=== PATIENT | female | born 1940 | race Caucasian/White ===

== ENCOUNTER 2017-07-29 12:35 | Inpatient (IN) | payer MEDICARE, OTHER ==
[2017-07-29] MEDS ORDERED: Ondansetron INJ* 2 MG/ML VIAL IV PRN (12:42)
[2017-07-29] MEDS ORDERED: Acetaminophen TAB* 325 MG PO PRN (12:42)
[2017-07-29] MEDS ORDERED: NS 0.9% 1000 ML* 1,000 ML IV SCH (12:45)
[2017-07-29] MEDS ORDERED: Albuterol/Ipratropium NEB.SOL* Albuterol 2.5 MG/Ipratropium 0.5 MG 3 ML INH PRN (12:49)
[2017-07-29] MEDS ORDERED: FILGRASTIM-SNDZ* 480 MCG/0.8 ML SYRINGE SUBCUT SCH (13:00)
[2017-07-29] MEDS ORDERED: Enoxaparin(*) 40 MG/0.4 ML SYR SUBCUT SCH (13:00)
--- NOTE | 2017-07-29 14:02 | RAD ---
INDICATION: Neutropenic, fever. COMPARISON: Comparison is made with a prior CT of the chest from June 13, 2017 and a prior x-ray study of the chest from October 04, 2013. TECHNIQUE: Dual-energy PA and lateral views of the chest were obtained. FINDINGS: The heart is within normal limits in size. The mass noted in the left hilar region and aorticopulmonary window area has decreased in size from the CT study. There is mild diffuse prominence of the interstitial markings which appear unchanged. There is a faint nodular density present at the left lung apex measuring 7 mm in size which appears present on the prior chest x-ray study and grossly unchanged. There is volume loss in a small infiltrate at the left lung base. No pleural effusion is seen. IMPRESSION: 1. SMALL LEFT BASILAR INFILTRATE. 2. INTERVAL DECREASE IN SIZE OF THE LEFT HILAR AND MEDIASTINAL MASS. 3. LEFT UPPER LOBE NODULE, UNCHANGED.
[2017-07-29] MEDS ORDERED: Azithromycin IV(*) 250 MG in D5W 250 ML BAG* 250 ML IVPB SCH (15:00)
[2017-07-29] MEDS: Azithromycin IV(*) 250 MG in NS 0.9% 250 ML* 250 ML IVPB SCH (16:31)
[2017-07-29] MEDS: NS 0.9% 1000 ML* 1,000 ML IV SCH (16:33)
[2017-07-29] MEDS ORDERED: Magnesium Sulf 4 GM/100 ML IV* 4,000 MG/100 ML BAG IVPB ONE (16:37)
[2017-07-29 17:30] LABS: Urine Appearance Clear; Urine Blood 2+ (Negative); Urine Color Yellow; Urine Ketones 1+ (Negative); Urine Protein Negative (Negative); Urine Specific Gravity 1.006 (1.010-1.030); Urine Urobilinogen Negative (Negative)
[2017-07-29] MEDS ORDERED: Calcium Carbonate CHEW TAB* 500 MG (TUMS) PO PRN (19:33)
[2017-07-29] MEDS: Potassium Chloride LIQUID* 20 MEQ PACKET PO SCH (20:37)
--- NOTE | 2017-07-29 21:51 | HP ---
ADDENDUM NOW INCLUDED ON THIS REPORT CC: Dr. Dupree, Primary Care Provider * ADMISSION HISTORY AND PHYSICAL: DATE OF ADMISSION: 07/29/17 PRIMARY ONCOLOGIST: Dr. Dupree. ADMITTING PHYSICIAN: Dr. Dupree. * (DICTATED BY OCTAVIO FERRARA) ADMITTING PROVIDER: OCTAVIO Ferrara CHIEF COMPLAINT: Fever. HISTORY OF PRESENT ILLNESS: This is a 76-year-old female with small cell lung cancer, undergoing concurrent chemo and radiation, who was noted to be febrile at her morning radiation appointment and was subsequently sent for medical exam. Patient states that she has been occasionally chilled since yesterday, accompanied by some increased fatigue over the last 2-3 days, but otherwise she reports that she has not been feeling particularly ill. Her temperature was noted to be approximately 102 degrees Fahrenheit at her radiation appointment. She vomited both in the radiation suite and once she arrived in the medical office. She denies any real associated nausea, but states that the vomiting seems to be the result of gag reflux from coughing thick sputum. She denies any urinary complaints including dysuria or increase in urinary frequency. She denies any associated abdominal pain or diarrhea. She has a chronically dry throat, which she attributes to her radiation therapy but otherwise denies any mouth pain. She has had a poor appetite for months, no changes recently. She does note, however, today that she has been using her albuterol inhaler on a couple of occasions for increased shortness of breath. At baseline, she does not require her rescue inhaler at all and is not on any maintenance inhalers. Patient completed her second cycle of chemotherapy with carboplatin and etoposide on 07/14/17 with her next cycle scheduled to start 08/04/17. Patient did not have any complication from her first cycle of chemo. Denies any recent infection. She is undergoing concurrent twice daily radiation therapy and apart from a dry throat and some moderate heartburn, she denies any other adverse effects. She states this is her last week of scheduled therapy. The patient was noted to be febrile in the office and lethargic. She received 1 liter of normal saline as a bolus and 2 g of cefepime. PAST MEDICAL HISTORY: 1. COPD - symptoms are fairly mild and requires only occasional use of rescue inhaler. 2. Hypertension. 3. Hyperlipidemia. 4. Small cell lung cancer - undergoing concurrent chemo and radiation as described above. 5. Diastolic heart failure. PAST SURGICAL HISTORY: 1. Left total hip replacement 2005 and revision in 2010. 2. Pituitary adenoma excision in 2005. HOME MEDICATIONS: 1. Albuterol 2 puffs inhaled q. 4 hours as needed for shortness of breath. 2. Vitamin D 1000 units p.o. daily. 3. Vitamin B12, 5000 mcg p.o. daily. 4. Glucosamine 1 tablet p.o. daily. 5. Hydrochlorothiazide 25 mg p.o. daily. 6. Ibuprofen 800 mg p.o. twice daily as needed. 7. Simvastatin 20 mg p.o. at bedtime. FAMILY HISTORY: Significant for diabetes, stroke, and heart disease, brother has a history of colon cancer, and sister with a history of lung cancer. SOCIAL HISTORY: Patient is , currently living with her daughter who is her primary caregiver as well as her healthcare proxy. Patient has a 40-pack- year smoking history and continues to smoke 1 pack of cigarettes daily. 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 PHYSICAL EXAMINATION GENERAL: This is an elderly, chronically ill-appearing female, who is accompanied by her daughter and appears to be in no acute distress at the time of examination. VITAL SIGNS: Upon reaching medical floor include a temperature of 99.1 degrees Fahrenheit, pulse 104 beats per minute, respiratory rate 18 per minute, oxygen saturation 94% on room air, and blood pressure 109/45 mmHg. HEENT: Head is normocephalic, atraumatic. Mucous membranes are pink and moist. There are no oral lesions. No evidence of thrush. She does have an upper plate of dentures noted. NECK: There is some submandibular and anterior cervical lymphadenopathy that is nontender to palpation. RESPIRATORY: The patient has a few scattered rhonchi and wheeze in the left lower lobe appreciated. CARDIOVASCULAR: Heart has regular rate and rhythm without murmurs, rubs, or gallops. ABDOMEN: Soft and nontender to palpation. EXTREMITIES: No edema noted. SKIN: Patient has no rash. Examination specifically over the site of radiation shows no erythema or evidence of breakdown of any kind. DIAGNOSTIC STUDIES/LAB DATA: CBC shows a total white blood cell count of 600 with an absolute neutrophil count of 300, hemoglobin of 9.5 g/dL and a platelet count of 30,000. Comprehensive metabolic panel shows a sodium of 129 mmol/L, potassium of 3.4, serum bicarbonate of 28, creatinine of 0.43, glucose of 139 mg/dL. Transaminases are unremarkable. Lactic acid on initial measurement of 2.8, repeat 4 hours later shows improvement to 1.0. Flu swab is negative for influenza A and B. Urinalysis is pending. Imaging: Chest x-ray shows a mild left basilar infiltrate. ASSESSMENT AND PLAN: This is a 76-year-old female with small cell lung cancer, undergoing concurrent chemo and radiation therapy who presented with a fever, now with evidence of neutropenia. Source of infection appears most likely be pulmonary with positive exam findings and a chest x-ray suggestive of small left basilar infiltrate. The patient will be subsequently admitted under observation status to medical floor for neutropenic fever. 1. Neutropenic fever - absolute neutrophil count of 300, noted to be febrile in the outpatient setting. Most likely source of infection is likely pulmonary with left basilar infiltrate appreciated on chest x-ray with associated exam findings. The patient will receive broad-spectrum antibiotic therapy. She received 2 g of cefepime in the clinic, which will be continued in addition to azithromycin for coverage of atypical organisms. We will administer Neupogen daily with monitoring of her absolute neutrophil count. Patient received 1 liter of bolus in the office as normal saline and she will receive 1 additional liter on the medical floor and then start maintenance fluid at a rate of 75 mL per hour. 2. Hyponatremia - suspects that this is likely secondary to hypovolemia. May also represent syndrome of inappropriate antidiuretic hormone secretion - we will plan to repeat chemistries tomorrow after hydration with normal saline. 3. Hypokalemia - likely secondary to gastrointestinal loss. We will replace orally if patient is able to tolerate and pending magnesium level. 4. Chronic obstructive pulmonary disease - no evidence of significant exacerbation accompanying her pneumonia. We will plan to continue treatment with p.r.n. DuoNeb. I do not see an indication to start corticosteroids at this time. 5. Pancytopenia - this is likely chemo-related toxicity - patient will receive Neupogen. We will continue to monitor CBC on a daily basis. No plan for transfusion of red blood cells or platelets at this time. 6. Small cell lung cancer - the patient is currently receiving concurrent chemo and radiation with carboplatin and etoposide, last administered 07/14/17. This is her second cycle with next cycle planned for 08/04/17. She is currently receiving twice daily radiation therapy. We will plan to continue her radiation therapy while inpatient at this time. 7. Healthcare proxy is the patient's daughter. 8. Code status is full. 9. Disposition. The patient is being admitted to observation status at this time with anticipated length of stay to be at least one midnight. OCTAVIO FERRARA ADDENDUM: Please note that blood cultures from periphery and her port were drawn in the office. Urinalysis is pending at the time of this dictation. OCTAVIO FERRARA [id number]/[facility] #: [id number]/[facility] #: [id number] TIA
--- NOTE | 2017-07-29 22:00 | HP ---
HISTORY AND PHYSICAL: ADDENDUM: Please note that blood cultures from periphery and her port were drawn in the office. Urinalysis is pending at the time of this dictation. OCTAVIO FERRARA [id number]/[facility] #: [id number] MTDDeshaun
[2017-07-29] MEDS: Cefepime 2 GM in Dextrose(*) 2 GM/50 ML BAG IV SCH (23:44)
[2017-07-30 06:11] LABS: Hematocrit 21 % (35-47); Hemoglobin 7.4 g/dl (12.0-16.0); Mean Corpuscular HGB Conc 35 g/dl (31-36); Mean Corpuscular Hemoglobin 30 pg (27-31); Mean Corpuscular Volume 88 fL (80-97); Mean Platelet Volume 8 um3 (7.4-10.4); Platelet Count 36 10^3/ul (150-450); Red Blood Count 2.42 10^6/ul (4.0-5.4); Red Cell Distribution Width 14 % (10.5-15); White Blood Count 1.1 10^3/ul (3.5-10.8)
[2017-07-30 06:27] LABS: EGFR Non-African American 188.2 (>60)
[2017-07-30 06:47] LABS: Monocytes % 34 % (0-7)
[2017-07-30] MEDS: NS 0.9% 1000 ML* 1,000 ML IV SCH (07:39)
[2017-07-30] MEDS ORDERED: Potassium Chloride LIQUID* 20 MEQ PACKET ONE (11:04)
[2017-07-30] MEDS: Potassium Chloride LIQUID* 20 MEQ PACKET PO SCH ×2 (11:41→22:21)
[2017-07-30] MEDS: Cefepime 2 GM in Dextrose(*) 2 GM/50 ML BAG IV SCH (12:23)
[2017-07-30] MEDS: Omeprazole CAP* 20 MG PO SCH (17:07)
[2017-07-30] MEDS: Azithromycin IV(*) 250 MG in NS 0.9% 250 ML* 250 ML IVPB SCH (17:07)
[2017-07-30] MEDS ORDERED: Cefepime(*) 2 GM in NS 0.9% 50 ML* 50 ML IVPB SCH (23:00)
[2017-07-31] MEDS: Omeprazole CAP* 20 MG PO SCH (05:16)
[2017-07-31 05:55] LABS: Hematocrit 24 % (35-47); Hemoglobin 8.3 g/dl (12.0-16.0); Mean Corpuscular HGB Conc 35 g/dl (31-36); Mean Corpuscular Hemoglobin 31 pg (27-31); Mean Corpuscular Volume 88 fL (80-97); Mean Platelet Volume 8 um3 (7.4-10.4); Platelet Count 45 10^3/ul (150-450); Red Cell Distribution Width 14 % (10.5-15); White Blood Count 2.3 10^3/ul (3.5-10.8)
[2017-07-31 05:59] LABS: EGFR Non-African American 209.4 (>60)
[2017-07-31 07:14] LABS: Monocytes % 21 % (0-7)
[2017-07-31 08:05] VITALS: BP 126/61
[2017-07-31] MEDS: Potassium Chloride LIQUID* 20 MEQ PACKET PO SCH (08:36)
--- NOTE | 2017-08-01 00:11 | DS ---
CC: Dr. Dupree * DISCHARGE SUMMARY: DATE OF ADMISSION: 07/29/17 DATE OF DISCHARGE: 07/31/17 ATTENDING PHYSICIAN: Dr. Dupree. * (DICTATED BY OCTAVIO FERRARA) DISCHARGING PROVIDER: OCTAVIO Ferrara PRIMARY DISCHARGE DIAGNOSES: 1. Neutropenic fever secondary to pneumonia. 2. Small cell lung cancer, undergoing concurrent chemo and radiation with plan to complete radiation 08/01/17. 3. Hyponatremia - improved. Sodium of 132 mmol/L at the time of discharge. 4. Hypokalemia - improved. Potassium was 3.4 at the time of discharge with instructions to discontinue hydrochlorothiazide. DISCHARGE MEDICATIONS: 1. Albuterol inhaler 2 puffs inhaled q.4 hours as needed for shortness of breath. 2. Vitamin D 1000 units p.o. daily. 3. Vitamin B12 5000 mcg p.o. daily. 4. Glucosamine 1 tablet p.o. daily. 5. Ibuprofen 800 mg p.o. twice daily as needed. 6. Levaquin 500 mg p.o. daily x7 days. 7. Simvastatin 20 mg p.o. at bedtime. Medication changes: 1. Discontinue hydrochlorothiazide. 2. Levaquin x7 days. HOSPITAL IMAGING: Chest x-ray demonstrates a small left basilar infiltrate. HOSPITAL COURSE: This is a 76-year-old female with small cell lung cancer, undergoing concurrent chemoradiation who was referred from the radiation suite with a fever of approximately 102 degrees Fahrenheit. The patient had complaints of shortness of breath and fatigue. The patient received IV hydration in the medical office and labs were drawn which demonstrated a neutropenia with an ANC of 200. The patient was subsequently admitted for neutropenic fever with suspected pneumonia. Chest x-ray confirmed presence of a left basilar infiltrate. The patient was treated with cefepime and azithromycin. Blood cultures and line cultures were drawn, all of which remained negative. Influenza testing was completed which was also negative. The patient received one dose of Neupogen and was hydrated with normal saline. Her ANC at the time of discharge was 1300 and she has been afebrile since the evening of admission. At the time of discharge, the patient denies any shortness of breath, chest pain or cough. Her energy has returned to baseline. Radiation treatments were continued during her hospitalization without complication. DISPOSITION AND FOLLOWUP PLAN: The patient is returning home where she lives independently with some support of her daughter. A referral has been made to [facility]. She plans to complete radiation treatment tomorrow. She will follow up with Dr. Dupree, her primary oncologist early next week in regards to her chemotherapy. OCTAVIO FERRARA [id number]/[facility] #: [id number] TIA
== END 2017-07-31 10:20 | disposition home health service (06) | DRG 808 ==
LOC: MED 12:37 → OBSVTOIN 07-30 13:00
PROVIDERS: ADMIT Internal Medicine Hematology & Oncology; ATTEND Internal Medicine Hematology & Oncology
PROC: DW022ZZ Beam Radiation of Chest using Photons >10 MeV (ICD-10-PCS; principal; 2017-07-30)
PROC: 30233N1 Transfusion of Nonautologous Red Blood Cells into Peripheral Vein, Percutaneous Approach (ICD-10-PCS; 2017-07-30)
DX: D70.9 Neutropenia, unspecified (principal); J18.9 Pneumonia, unspecified organism; I50.32 Chronic diastolic (congestive) heart failure; C34.90 Malignant neoplasm of unspecified part of unspecified bronchus or lung; E87.1 Hypo-osmolality and hyponatremia; R50.81 Fever presenting with conditions classified elsewhere; J44.0 Chronic obstructive pulmonary disease with (acute) lower respiratory infection; D61.818 Other pancytopenia; E87.6 Hypokalemia; F17.210 Nicotine dependence, cigarettes, uncomplicated; J39.2 Other diseases of pharynx; I10 Essential (primary) hypertension; E78.5 Hyperlipidemia, unspecified; Z96.642 Presence of left artificial hip joint; Z83.3 Family history of diabetes mellitus; Z82.49 Family history of ischemic heart disease and other diseases of the circulatory system; Z82.3 Family history of stroke; Z80.0 Family history of malignant neoplasm of digestive organs; Z80.1 Family history of malignant neoplasm of trachea, bronchus and lung
CPT/HCPCS: 36415; 71046; 80048; 80053; 81003; 81015; 83605; 83735; 85025; 85060; 86850; 86870; 86880; 86900; 86901; 86905; 86922; 87040; 87086; 87205; 87502; 96361; 96365; 96367; 99214; 99232; 99239; 99406; A9270-GY; G0378; G0463; J0456; J0692; J1642; J3475; P9040; Q5101 ZA

== ENCOUNTER 2018-11-09 09:37 | Observation (INO) | payer MEDICARE, OTHER ==
[2018-11-09] MEDS ORDERED: NS 0.9% 1000 ML** 1,000 ML IV ONE (09:50)
--- NOTE | 2018-11-09 10:10 | ED ---
Neurological HPI - HPI Summary HPI Summary: This pt is a 78 y/o female [facility]/o some aphasia, described as difficulty findings words, since last night. Daughter reports she speak with the pt every night on the phone. Daughter spoke to the pt yesterday morning and pt was well. Per daughter, pt went to a picnic yesterday at around 16:00 and was there for about 1 hour and then drove herself home. Daughter was told the pt was seen well while at the picnic. Daughter then spoke to the pt again at around 19:00 last night and pt "was not making sense on the phone." Daughter went over and states pt knew what she wanted to say but her words were not coming out right, "like gibberish." Per daughter, this morning pt is still the same with difficulty findings words and couldn't think of what her handicap sticker was called. Pt denies weakness, tingling, numbness. Pt also denies any fever, chills, erythema of eyes, sore throat, chest pain, SOB, cough, abd pain, nausea, vomiting, dysuria, hematuria, myalgia, edema, rash, or dizziness. PMHx: small cell lung CA with radiation and chemo (on remission now), total hip and knee replacement on the left. Pt is followed up by Dr. Preciado and Dr. Dupree. She had an MRI and CT 1 week ago. - History of Current Complaint Chief Complaint: EDNeurologicalDeficit Stated Complaint: POSS STROKE PER PT DAUGHTER Time Seen by Provider: 11/09/18 09:50 Hx Obtained From: Patient, Family/Account Director - Daughter Onset/Duration: Started hours ago, Still Present Timing: Sudden Onset Current Severity: Mild Pain Intensity: 0 - denies pain Pain Scale Used: 0-10 Numeric Character: Other: - difficulty findings words Aggravating: Nothing Alleviating: Nothing Associated Signs and Symptoms: Negative: Weakness, Loss of Consciousness, Numbness, Nausea/Vomiting, Fever, Chest Pain, Shortness of Breath - Additional Pertinent History Primary Care Physician: [id number] - Allergy/Home Medications Allergies/Adverse Reactions: Allergies Allergy/AdvReac Type Severity Reaction Status Date / Time No Known Allergies Allergy Verified 11/09/18 09:43 PMH/Surg Hx/FS Hx/Imm Hx Endocrine/Hematology History: Denies: Hx Diabetes Cardiovascular History: Denies: Hx Hypertension - Hx PF , WITH LOSS BP OK, NOT TAKING ANY MEDICATION , Hx Pacemaker/ICD Respiratory History: Reports: Hx Chronic Obstructive Pulmonary Disease (COPD), Hx Sleep Apnea - OXYGEN 2 L VIA NASAL CANNULA AT NIGHT Denies: Hx Asthma History: Denies: Hx Dialysis, Hx Renal Disease Musculoskeletal History: Reports: Hx Arthritis - HANDS, Hx Osteoporosis Sensory History: Reports: Hx Contacts or Glasses, Hx Hearing Aid Opthamlomology History: Reports: Hx Contacts or Glasses Neurological History: Reports: Other Neuro Impairments/Disorders - CYST ON PITUTARY GLAND Psychiatric History: Denies: Hx Panic Disorder - Cancer History Cancer Type, Location and Year: LUNG CANCER Hx Chemotherapy: No Hx Radiation Therapy: No - Surgical History Surgery Procedure, Year, and Place: PORT-REMOVED ,RT KNEE, LT HIP PIN, GANGLION CYST ON ELBOW. RIGHT KNEE REPLACEMENT 2005. REMOVED CYST PITUITARY GLAND. BILATERAL HIP REPLACMENTS 07/2010 RIGHT-03/2007 LEFT. REPLACE BONE IN LEFT LEG Hx Anesthesia Reactions: No Infectious Disease History: No Infectious Disease History: Denies: Traveled Outside the [place] in Last 30 Days - Family History Known Family History: Positive: Cardiac Disease, Diabetes Family History: Stroke. - Social History Alcohol Use: None Substance Use Type: Reports: None Hx Tobacco Use: Yes Smoking Status (MU): Heavy Every Day Tobacco Smoker Type: Cigarettes Amount Used/How Often: 1 PPD X 40 YEARS, PAST YEAR 1/2PPD OR LESS Have You Smoked in the Last Year: Yes Review of Systems Negative: Fever, Chills Negative: Erythema Negative: Sore Throat Negative: Chest Pain Negative: Shortness Of Breath, Cough Negative: Abdominal Pain, Vomiting, Nausea Negative: dysuria, hematuria Negative: Myalgia, Edema Negative: Rash Neurological: Other - NEGATIVE: dizziness. POSITIVE: difficulty findings words Negative: Weakness, Paresthesia, Numbness All Other Systems Reviewed And Are Negative: Yes Physical Exam - Summary Physical Exam Summary: Constitutional: Well-developed, Well-nourished, Alert. (-) Distressed Skin: Warm, Dry HENT: Normocephalic; Atraumatic Eyes: Conjunctiva normal Neck: Musculoskeletal ROM normal neck. (-) JVD, (-) Stridor, (-) Tracheal deviation Cardio: Rhythm regular, rate normal, Heart sounds normal; Intact distal pulses; The pedal pulses are 2+ and symmetric. Radial pulses are 2+ and symmetric. (-) Murmur Pulmonary/Chest wall: Effort normal. (-) Respiratory distress, (-) Wheezes, (-) Rales Abd: Soft. (-) Tenderness, (-) Distension, (-) Guarding, (-) Rebound Musculoskeletal: (-) Edema Lymph: (-) Cervical adenopathy Neuro: Alert, Oriented x3. (-) Nystagmus, (-) Ataxia by finger to nose testing, (-) Sensory deficit. (+) Drift on the left lower extremity. Poorly states picture description with inappropriate wording. No visual loss. Psych: Mood and affect Normal Triage Information Reviewed: Yes Vital Signs On Initial Exam: Initial Vitals Temp Pulse Resp BP Pulse Ox 98.8 F 80 18 168/87 95 11/09/18 09:38 11/09/18 09:38 11/09/18 09:38 11/09/18 09:38 11/09/18 09:38 Vital Signs Reviewed: Yes - Ebenezer Coma Scale Best Eye Response: 4 - Spontaneous Best Motor Response: 6 - Obeys Commands Best Verbal Response: 5 - Oriented Coma Scale Total: 15 Diagnostics - Vital Signs Vital Signs Temp Pulse Resp BP Pulse Ox 11/09/18 09:38 98.8 F 80 18 168/87 95 - Laboratory Result Diagrams: 11/09/18 10:00 11/09/18 10:00 Lab Statement: Any lab studies that have been ordered have been reviewed, and results considered in the medical decision making process. - CT Brain CT CT Interpretation Completed By: Radiologist Summary of CT Findings: IMPRESSION: 1. No acute intracranial pathology. 2. Chronic small vessel ischemic change. 3. Sinus mucosal inflammatory disease, with an air-fluid level in the frontal sinus. In the correct clinical setting, this may represent acute sinusitis. Dr. Hardy has reviewed this report. Head CTA CT Interpretation Completed By: Radiologist Summary of CT Findings: IMPRESSION: 1. Atherosclerosis. 2. No internal carotid artery stenosis by nascet criteria. 3. No aneurysm, vascular malformation, occlusion, or stenosis of the visualized intracranial circulation. 4. Chronic small vessel ischemic change. 5. Sinus mucosal inflammatory disease, with an air -fluid level in the frontal sinus. In the correct clinical setting, this may represent acute sinusitis. Dr. Hardy has reviewed this report. - EKG 09:54 Cardiac Rate: NL - at 74 bpm EKG Rhythm: Sinus Rhythm Summary of EKG Findings: No STEMI. NIH Scale - NIH Scale Level of Consciousness: Alert/Keenly Responsive Ask Patient the Month and His/Her Age: Both Correct Ask Pt to Open/Close Eyes and Heavy Forger Helper/Release Non-Paretic Hand: Both Correctly Best Gaze (Only Horizontal Eye Movement): Normal Visual Field Testing: No Visual Loss Facial Paresis-Pt to Smile & Close Eyes or Grimace Symmetry: Normal/Symmetrical Motor Function - Right Arm: No Drift-Holds 10 Seconds Motor Function - Left Arm: No Drift-Holds 10 Seconds Motor Function - Right Leg: No Drift-Holds 10 Seconds Motor Function - Left Leg: Drifts LT 10 seconds Limb Ataxia-Must be out of Proportion to Weakness Present: Absent Sensory (Use Pinprick to Test Arms/Legs/Trunk/Face): Normal Best Language (Describe Picture, Name Items): Some Loss Dysarthria (Read Several Words): Slurs Some Words Extinction and Inattention: No Abnormality Total Score: 3 Re-Evaluation - Re-Evaluation First Eval Re-Evaluation Time: 12:34 Comment: Per daughter, pt usually uses a walker to ambulate. Second Eval Re-Evaluation Time: 12:40 Comment: Updated the pt and daughter on results. Course/Dx - Course Assessment/Plan: Pt is a 78 y/o female [facility] c/o some aphasia, described as difficulty findings words, since last night. Daughter reports she speak with the pt every night on the phone. Daughter spoke to the pt yesterday morning and pt was well. Per daughter, pt went to a picnic yesterday at around 16:00 and was there for about 1 hour and then drove herself home. Daughter was told the pt was seen well while at the picnic. Daughter then spoke to the pt again at around 19:00 last night and pt "was not making sense on the phone." Daughter went over and states pt knew what she wanted to say but her words were not coming out right, "like gibberish.". NIH stroke scale is 3. Patient with some aphasia and left lower extremity drift. Brain CT shows 1. No acute intracranial pathology. 2. Chronic small vessel ischemic change. 3. Sinus mucosal inflammatory disease, with an air-fluid level in the frontal sinus. In the correct clinical setting, this may represent acute sinusitis. Head CTA shows 1. Atherosclerosis. 2. No internal carotid artery stenosis by nascet criteria. 3. No aneurysm, vascular malformation, occlusion, or stenosis of the visualized intracranial circulation. 4. Chronic small vessel ischemic change. 5. Sinus mucosal inflammatory disease, with an air-fluid level in the frontal sinus. In the correct clinical setting, this may represent acute sinusitis. Discussed the case with Dr. Zavaleta, hospitalist, who accepted the pt for admission. - Diagnoses Provider Diagnoses: CVA (cerebral vascular accident) - Physician Notifications Discussed Care Of Patient With: Melissa Zavaleta - hospitalist Time Discussed With Above Provider: 12:49 Instructed by Provider To: Admit As Inpatient - Critical Care Time Critical Care Time: 30-74 min - 45 minutes Discharge - Sign-Out/Discharge Documenting (check all that apply): Patient Departure - Admit to [facility] All imaging exams completed and their final reports reviewed: Yes Patient Received Moderate/Deep Sedation with Procedure: No - Discharge Plan Condition: Stable Disposition: ADMITTED TO [facility] - Attestation Statements Document Initiated by Scribe: Yes Documenting Scribe: Melissa Banegas Provider For Whom Scribe is Documenting (Include Credential): Mitchell Hardy MD Scribe Attestation: Melissa James, scribed for Mitchell Hardy MD on 11/09/18 at 1448. Status of Scribe Document: Ready
[2018-11-09 10:18] LABS: ABS Eosinophils 0.1 10^3/ul (0-0.6); ABS Lymphocytes 0.8 10^3/ul (1.0-4.8); ABS Monocytes 0.4 10^3/ul (0-0.8); ABS Neutrophils 2.6 10^3/ul (1.5-7.7); Eosinophil % 2.3 %; Hematocrit 39 % (35-47); Hemoglobin 13.3 g/dL (12.0-16.0); Lymphocyte % 20.1 %; Mean Corpuscular HGB Conc 34 g/dL (31-36); Mean Corpuscular Hemoglobin 31 pg (27-31); Mean Corpuscular Volume 91 fL (80-97); Mean Platelet Volume 8.3 fL (7.4-10.4); Platelet Count 144 10^3/uL (150-450); Red Cell Distribution Width 13 % (10-15); White Blood Count 3.9 10^3/uL (3.5-10.8)
[2018-11-09 10:20] LABS: Activated Partial Thrombo Time 36.7 seconds (26.0-38.0); INR 1.08 (0.82-1.09)
[2018-11-09 10:33] LABS: Albumin 4.4 g/dL (3.2-5.2); Albumin/Globulin Ratio 1.6 (1-3); BUN/Creatinine Ratio 20.5 (8-20); Calcium 10.1 mg/dL (8.6-10.3); EGFR African American 168.2 (>60); Globulin 2.7 g/dL (2-4); HDL Cholesterol 74.5 mg/dL; Potassium 3.7 mmol/L (3.5-5.0); Total Bilirubin 0.6 mg/dL (0.2-1.0); Total Protein 7.1 g/dL (6.4-8.9)
[2018-11-09 10:34] LABS: Troponin I 0.01 ng/mL (<0.04)
[2018-11-09] MEDS ORDERED: Iohexol 350* (CONTRAST) 500 ML MDV IV ONE (10:53)
[2018-11-09] MEDS ORDERED: Ondansetron INJ* 2 MG/ML VIAL IV PRN (13:43)
[2018-11-09] MEDS ORDERED: Acetaminophen TAB* 325 MG PO PRN (13:43)
--- NOTE | 2018-11-09 15:22 | HP ---
CC: Dr. Jas Mancia; Dr. Soto Gomez * ADMISSION HISTORY AND PHYSICAL: DATE OF ADMISSION: 11/09/18 PRIMARY CARE PROVIDER: Dr. Jas Mancia. MY ATTENDING WHILE IN THE HOSPITAL: Dr. Melissa Zavaleta.* (DICTATED BY OCTAVIO CAIN) CONSULTING NEUROLOGIST: Dr. Soto Gomez. CHIEF COMPLAINT: Aphasia x1 day. HISTORY OF PRESENT ILLNESS: Ms. Garg is a 78-year-old female with past medical history significant for small cell lung cancer, currently in remission, status post radiation and chemo; COPD; hypertension; hyperlipidemia, who presents to the emergency department after last night she was in normal state of health, driving herself, when she attempted to call her daughter for their normal evening discussion and was found to have garbled speech and difficulty operating her cellphone. The patient's daughter went to her house and found that she had garbled speech, but normal gait and no other deficits, was feeling well otherwise and improving slowly. The patient spent the night at her daughter's house, woke up this morning and had persistent garbled speech where she looked like she knew what she was trying to say, but was having trouble getting it out. The patient was then brought to the hospital by EMS. The patient has been feeling well recently. The patient has not had any recent treatment for her cancer. The patient had a brain MRI and CT scan of the chest , abdomen and pelvis last week, both of which were stable from previous exams. The patient denied fevers, chills, palpitations, passing out. The patient has no history of AFib. The patient has a history of heart failure with preserved ejection fraction in her documented history, but the family and the patient have no recollection of this ever being a concern. The patient had an episode like while she was having chemotherapy. The patient was previously on aspirin and blood pressure medications, but was taken off these when she was having her chemotherapy. The patient has no leg swelling, no shortness of breath on exertion, no chest pain. No abdominal pain, diarrhea, or dysuria. In the emergency department, the patient had persistent findings of aphasia and left- sided weakness and we were asked to evaluate the patient for admission to the hospital due to concern for CVA. The patient had a negative CTA of the brain and a brain CT without hemorrhage. PAST MEDICAL HISTORY: 1. Small cell lung cancer, in remission, status post chemo and radiation. 2. COPD. 3. Hypertension. 4. Possible history of heart failure with preserved ejection fraction. PAST SURGICAL HISTORY: Pituitary adenoma removal in 2005, Hip Replacement in 2005, knee replacement in 2010, cadaver bone graft to the left hip in 2006, port placement and removal. MEDICATIONS: The patient only takes: 1. Ibuprofen 800 mg daily. 2. Simvastatin 40 mg p.o. daily. 3. Osteo Bi-Flex, unknown dose in the morning. ALLERGIES: No known drug allergies. FAMILY HISTORY: The patient's father of complications of diabetes. The patient's mother of heart failure and also had a stroke when she was 56. The patient has a brother who had colon cancer and a sister who had lung cancer. SOCIAL HISTORY: The patient still smokes less than a pack a day. The patient has a heavy smoking history. The patient denies alcohol or illicit drug use. 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 REVIEW OF SYSTEMS: The patient had lost over 110 pounds in 3 years, but her weight has stabilized where it currently is. Review of systems is otherwise performed in 14 systems and is negative except as above in the HPI. PHYSICAL EXAMINATION GENERAL: The patient is a 78-year-old female, who appears stated age and sitting comfortably in bed, in no acute distress. VITAL SIGNS: At the time of evaluation, temperature 98.8, pulse rate 77, respiratory rate 20, oxygen saturation 98% on room air, blood pressure 165/83. HEENT: Head: Normocephalic, atraumatic. Sclerae anicteric. No conjunctival injection. Nasal mucosa moist. Oral mucosa moist. No pharyngeal erythema, discharge, or exudate. NECK: Supple, nontender. No lymphadenopathy. No carotid bruits auscultated. No JVD. RESPIRATORY: Clear to auscultation bilaterally. No wheezes, rales, or rhonchi. Good air exchange bilaterally. CARDIAC: Regular rate and rhythm. No clicks, murmurs, gallops, or rubs. Pulses are 2+ in the bilateral dorsalis pedis, posterior tibialis, and radial areas. ABDOMEN: Soft, nontender, nondistended. Bowel sounds present and normoactive in all 4 quadrants. No hepatosplenomegaly. No abdominal bruits auscultated. No hepatojugular reflux. GENITOURINARY: No suprapubic or CVA tenderness. NEURO: Cranial nerves II through XII intact. Left-sided weakness in the left upper and lower extremities distally and proximally. Reflexes normal. Normal sensation. The patient has word-finding difficulty and some slurred speech. No other focal deficits. PSYCHIATRIC: Pleasant and cooperative. SKIN: Clean, dry, and intact. No rash. DIAGNOSTIC STUDIES/LAB DATA: White blood cell count 3.9, hemoglobin 13.3, platelet count 144. INR 1.08, APTT 36.7. Sodium 135, potassium 3.7, chloride 100, carbon dioxide 28, anion gap 7, BUN 9, creatinine 0.44, glucose 96, lactic acid 1.4, calcium 10.1. Bilirubin 0.6, AST 16, ALT 6, alkaline phosphatase 76. Troponin I 0.01. Total protein 7.1, albumin 4.4, globulin 2.7. Triglycerides 63, cholesterol 194, LDL cholesterol 107, HDL cholesterol 74.5. Studies: Electrocardiogram shows normal sinus rhythm. No ST segment elevation or depression. Incomplete right bundle branch block, left axis deviation, possible right atrial enlargement, QTc 505, rate of 74. Brain CT read as no acute intracranial pathology, chronic small vessel ischemic change, sinus mucosal inflammatory disease with air-fluid level in the frontal sinus. Head CTA read as atherosclerosis. No internal carotid artery stenosis by NASCET criteria. No aneurysm, vascular malformation, occlusion, or stenosis of the visualized intracranial circulation. Chronic small vessel ischemic change, sinus mucosal inflammatory disease with air-fluid level in the frontal sinus. ASSESSMENT AND PLAN/IMPRESSION: Ms. Garg is a 78-year-old female with past medical history significant for small cell lung cancer, chronic obstructive pulmonary disease, hypertension, hyperlipidemia, who presents to the emergency department with approximately 22 hours of aphasia and was found to have left- sided weakness in the emergency department with concern for a stroke. The patient will be admitted to the hospital for close monitoring, optimization of care and secondary prevention. 1. Cerebrovascular accident. The patient has aphasia and left-sided weakness consistent with cerebrovascular accident. The patient has no evidence of metastases on recent brain MRI with contrast. The patient will have a repeat brain MRI without contrast to look for stroke. The patient will be monitored on telemetry for atrial fibrillation. The patient will have a transthoracic echocardiogram to assess for patent foramen ovale and other structural heart disease predisposing the stroke. The patient has no large vessel occlusion. The patient is out of the tPA window. The patient will be started on aspirin and Plavix. The patient's simvastatin will be increased with an LDL goal less than 70. The patient will have a hemoglobin A1c. The patient will be seen in consultation by Dr. Soto Gomez of Neurology, who has been contacted by the ED. 2. Hypertension. The patient is currently borderline hypertensive. The patient is on no medications for this home as they were previously stopped. The patient will have permissive hypertension at this time. The patient is receiving fluids in the emergency department. The patient should be treated to blood pressure goal starting tomorrow or sooner per Neurology recommendation. 3. Hyperlipidemia. Increase simvastatin as above. 4. Small cell lung cancer. The patient currently appears to be in remission. Follow up outpatient with Oncology. 5. DVT prophylaxis: The patient will be placed on Lovenox subcu. TIME SPENT: Approximately 60 minutes was spent on the admission of this patient , 30 of which was spent [id number] with the patient obtaining history and physical and discussing treatment plan. This plan was discussed with my attending, Dr. Melissa Zavaleta, and she is in agreement. OCTAVIO CAIN [id number]/[facility] #: [id number] TIA
[2018-11-09 15:25] LABS: Urine Appearance Clear; Urine Bacteria Absent (Absent); Urine Bilirubin Negative (Negative); Urine Blood 1+ (Negative); Urine Color Straw; Urine Glucose Negative (Negative); Urine Ketones Negative (Negative); Urine Nitrite Negative (Negative); Urine Protein Negative (Negative); Urine Red Blood Cell Trace(0-2/hpf) (Absent); Urine Specific Gravity 1.027 (1.010-1.030); Urine Urobilinogen Negative (Negative); Urine White Blood Cell Trace(0-5/hpf) (Absent)
[2018-11-09] MEDS: Enoxaparin(*) 40 MG/0.4 ML SYR SUBCUT SCH (16:15)
[2018-11-09] MEDS ORDERED: Aspirin TAB* 325 MG PO ONE (16:27)
[2018-11-09] MEDS ORDERED: Clopidogrel TAB* 300 MG PO ONE (16:28)
--- NOTE | 2018-11-09 17:19 | CONS ---
NEUROLOGY CONSULTATION: DATE OF CONSULT: 11/09/18 REFERRING PROVIDER: OCTAVIO Crowley LOCATION: She is inpatient, room 441. CHIEF COMPLAINT: Episode of difficulty coming up with words. HISTORY OF PRESENT ILLNESS: Chelsy Garg is a 78-year-old right-handed woman who was fine yesterday at a picnic with friends for the day. At around 9 o' clock, she was on the phone and had difficulty coming up with words. She said she knows what she wanted to say, but she could not get the words out. She did not seek medical attention at that time. She thinks by the time she went to bed about midnight it was gone. When she woke up this morning, she no longer had difficulty coming up with words. Her daughter, however, convinced her to come to the emergency room. She was evaluated and has been admitted. She has not had any problems with word finding today. Other than the word finding difficulties last evening, she did not notice any change in vision, weakness, numbness, headaches, or imbalance. There is no prior history of transient ischemic attack or stroke. PAST MEDICAL HISTORY: Notable for small cell lung cancer, treated with radiation and chemotherapy. She is currently considered to be free of disease. She has a history of COPD, hypertension, hyperlipidemia, diastolic heart dysfunction. She had a total hip replacement in 2005 with revision in 2010. She had a pituitary adenoma excised in 2005. MEDICATIONS: Medications at home consist of: 1. Simvastatin 40 mg p.o. daily. 2. Ibuprofen 800 mg p.o. daily. 3. Multivitamin. 4. She does not take aspirin on a regular basis. ALLERGIES: She does not have any drug allergies. FAMILY HISTORY: Notable for mother who had a stroke at age 56. One sister had lung cancer and one brother had colon cancer. SOCIAL HISTORY: The patient still smokes a pack of cigarettes per day. She is and lives by herself. She does not drink alcohol. REVIEW OF SYSTEMS: Negative for falls, headaches, or change in vision. She lost nearly 100 pounds in the last 3 years. Her weight has been stable in the last few months. No history of seizures or head trauma. No recent fevers or chills. PHYSICAL EXAMINATION: She is thin, but well hydrated. Temperature is 98.8, blood pressure has been running about 160 to 180 systolic/80 to 90 diastolic, heart rate is in the 70s and regular, respiratory rate is 18, and oxygen saturation is 96% on room air. Lungs are clear bilaterally. Heart tones are distant, but I do not hear any murmurs. Carotid pulses are present. There are no cervical bruits. Oral mucosa is moist and head is atraumatic. Neurological Exam: Pupils react equally from 4 down to 2.5 mm. Funduscopic exam is normal. Eye movements are normal. Visual yoon are full to confrontation. Facial musculature is symmetric. Facial sensation to light touch is symmetric. Palate and tongue appear normal, tongue protrudes in the midline and palate rises symmetrically. She is hard of hearing. Motor exam reveals normal tone and strength in the limbs proximally and distally. There is no drift of any of the limbs. Sensory exam is intact to light touch in all limbs. Pin discrimination is intact in all limbs as well. There is no rest tremor. [id number] maneuver and [id number] maneuvers are normal bilaterally. Reflexes are intact and symmetric other than trace ankle reflexes. Plantar responses are flexor bilaterally. I did not ambulate her. She is alert and oriented with intact memory. Language is fluent. She has adequate attention, concentration, and fund of knowledge. DIAGNOSTIC STUDIES/LAB DATA: Laboratory data includes a normal CBC other than borderline low platelet count at 144,000. Chemistries are unremarkable. Cholesterol today is 194 and LDL 107. Lactic acid 1.4. Urinalysis is notable for 1+ blood and otherwise unremarkable. MRI of the brain was obtained and reviewed. Official interpretation is some scattered nonspecific white matter changes, but no evidence of restricted diffusion or hemorrhages. I reviewed the images and I questioned whether there might be a tiny subacute area of restricted diffusion in the right frontoparietal junction. IMPRESSION: Impression is that of a dominant hemisphere transient ischemic attack. Currently, her exam is unremarkable and her MRI imaging does not show any convincing evidence of acute or subacute infarction. She has been appropriate, admitted to telemetry. An echocardiogram is pending. Recommend loading with Plavix 300 mg and aspirin 324 mg. She should be continued on maintenance dual antiplatelet therapy of aspirin 81 mg and Plavix 75 mg starting tomorrow. Her echocardiogram is pending. Her statin is being continued. Her dose will likely need to be increased with an LDL of 107. I will continue to follow her along with you. [id number]/[facility] #: [id number] TIA
[2018-11-09] MEDS ORDERED: Atorvastatin* 20 MG TAB PO SCH (21:00)
[2018-11-09] MEDS ORDERED: Ibuprofen TAB* 800 MG PO SCH (21:00)
[2018-11-10 06:32] LABS: ABS Eosinophils 0.1 10^3/ul (0-0.6); ABS Lymphocytes 0.8 10^3/ul (1.0-4.8); ABS Monocytes 0.4 10^3/ul (0-0.8); ABS Neutrophils 1.3 10^3/ul (1.5-7.7); Eosinophil % 5.1 %; Hematocrit 35 % (35-47); Hemoglobin 11.9 g/dL (12.0-16.0); Lymphocyte % 31.6 %; Mean Corpuscular HGB Conc 34 g/dL (31-36); Mean Corpuscular Hemoglobin 31 pg (27-31); Mean Corpuscular Volume 91 fL (80-97); Mean Platelet Volume 8.6 fL (7.4-10.4); Nucleated Red Blood Cells % 0.2; Platelet Count 128 10^3/uL (150-450); Red Blood Count 3.81 10^6 /uL (3.70-4.87); Red Cell Distribution Width 13 % (10-15); White Blood Count 2.6 10^3/uL (3.5-10.8)
[2018-11-10 06:43] LABS: BUN/Creatinine Ratio 22.7 (8-20); Calcium 9.5 mg/dL (8.6-10.3); EGFR African American 168.2 (>60); Potassium 3.6 mmol/L (3.5-5.0)
[2018-11-10] MEDS ORDERED: Clopidogrel TAB* 75 MG PO SCH (09:00)
[2018-11-10] MEDS ORDERED: Aspirin EC TAB* 81 MG TAB.EC PO SCH (09:00)
--- NOTE | 2018-11-10 11:42 | ECHO ---
*[facility]* [place] [address] Fax #: [phone] Transthoracic Echocardiogram Patient: Britany, Height: 66 in / Chelsy H 167.6 cm : 1940 Weight: 144.7 lb / Study Date: 11/10/2018 65.8 kg Age: 78 BP: 171 / 77 Gender: F BMI/BSA: 23.4 kg/m^2 HR: 70 bpm / 1.76 m^2 *Chief Librarian Branch Or Department: * Meredith Crespo RDCS RN *Referring Physician: * Bossman Triplett *Reading Physician: * Francisco Javier Foote MD Indications: TIA. History: Chronic obstructive pulmonary disease. Small cell lung cancer with chemotherapy and radiation therapy. Risk factors: Current tobacco use. Hypertension. Dyslipidemia. Conclusions Summary: 1. Left ventricle: The cavity size is normal. Wall thickness is mildly to moderately increased. Systolic function is normal. The estimated ejection fraction is 60-65%. Wall motion is normal; there are no regional wall motion abnormalities. 2. Right ventricle: Systolic function is normal. The estimated peak pressure is 34 mm Hg. 3. Atrial septum: No defect or patent foramen ovale is identified. 4. Mitral valve: There is trace to mild regurgitation. 5. Aortic valve: There is mild regurgitation. 6. Tricuspid valve: There is trace to mild regurgitation. 7. Compared to study of 07/07/18, there is little change. Study data: Transthoracic echocardiogram. Procedure: Transthoracic echocardiography was performed. Image quality was fair. The study was technically limited due to COPD and Smoking history. Intravenous agitated saline was administered. A bubble study was performed on Images 27 and 28. Complete 2D, spectral Doppler, and color flow Doppler. Patient status: Observation. Patient room number: 441-01. Rhythm: Normal sinus rhythm. Findings Left ventricle: The cavity size is normal. Wall thickness is mildly to moderately increased. Systolic function is normal. The estimated ejection fraction is 60-65%. Wall motion is normal; there are no regional wall motion abnormalities. Left ventricular diastolic function parameters are normal. Right ventricle: The cavity size is normal. Systolic function is normal. The estimated peak pressure is 34 mm Hg. Left atrium: The atrium is normal in size. Right atrium: The atrium is normal in size. Atrial septum: No defect or patent foramen ovale is identified. Bubble study was negative on Images 27 and 28. Mitral valve: The annulus is mildly calcified. The leaflets are moderately thickened. There is no evidence of stenosis. There is trace to mild regurgitation. Aortic valve: The valve is trileaflet. The leaflets are mildly thickened. There is no evidence of stenosis. There is mild regurgitation. Tricuspid valve: The valve is structurally normal. There is no evidence of stenosis. There is trace to mild regurgitation. Pulmonic valve: Not well visualized. Aorta: Aortic root: The aortic root is not dilated. Ascending aorta: The ascending aorta is not visualized. Aortic arch: The aortic arch is not dilated. Pericardium: There is no pericardial effusion. Pulmonary arteries: Not well visualized. Systolic pressure is within the normal range, estimated to be 34 mm Hg. Systemic veins: Inferior vena cava: The vessel is normal in size. The respirophasic diameter changes are in the normal range (>= 50%). Measurements Left ventricle Value Ref Aortic valve Value Ref WILEY, LAX 4.1 cm 3.8 - 5.2 Peak v, S 1.8 m/sec ----- ESD, LAX 2.7 cm 2.2 - 3.5 VTI, S 40.9 cm ----- FS, LAX 34 % 27 - 45 Mean grad, S 7.6 mm Hg ----- PW, ED, LAX (H) 1.1 cm 0.6 - 0.9 Peak grad, S 13.0 mm Hg ----- IVS/PW, ED 1.2 --------- LVOT/AV, VTI ratio 0.73 ----- E', lat lori, TDI (L) 6.0 cm/sec >=10.0 AR peak v 3.15 m/sec -- --- E/e', lat lori, TDI 14 --------- AR decel time 1866 ms ----- E', med lori, TDI (L) 6.0 cm/sec >=7.0 AR PHT 541 ms -- --- E/e', med lori, TDI 14 --------- AR peak grad 40 mm Hg ----- E', avg, TDI 6.0 cm/sec --------- E/e', avg, TDI 14 <=14 Mitral valve Value Re f Peak E 0.85 m/sec ----- LVOT Value Ref Peak A 1.18 m/sec ----- Peak irma, S 1.4 m/sec --------- Decel time 339 ms ----- VTI, S 29.8 cm --------- Peak grad, D 2.9 mm Hg ----- Peak grad, S 8 mm Hg --------- Peak E/A ratio 0.72 ----- Mean grad, S 4 mm Hg --------- Pulmonic valve Value Ref Ventricular septum Value Ref Peak v, S 1.08 m/sec ----- IVS, ED (H) 1.3 cm 0.6 - 0.9 Peak grad, S 4.7 mm Hg ----- Right ventricle Value Ref Tricuspid valve Value Ref WILEY major ax, A4C (L) 3.5 cm 5.9 - 8.3 TR peak v 2.8 m/sec <=2.8 Peak RV-RA grad, S 31 mm Hg ----- Left atrium Value Ref LA ID 3.3 cm --------- Aortic root Value Ref ML dim, A4C 4.6 cm --------- Root diam 2.7 cm <4.0 SI dim, A4C 5.1 cm --------- Vol, ES, 2-p 59 ml --------- Aortic arch Value Ref Vol/bsa, ES, 2-p 33 ml/m^2 16 - 34 Arch diam 2.2 cm ----- Right atrium Value Ref Decending aorta Value Ref ML dim, ES, A4C 4.1 cm 2.6 - 4.4 Anshul peak irma 0.56 m/sec ----- SI dim, ES, A4C 4.7 cm 3.4 - 5.3 Estimated RAP 3 mm Hg --------- Inferior vena cava Value Ref Diam 1.7 cm ----- Legend: (L) and (H) jaden values outside specified reference range. Prepared and electronically signed by Francisco Javier Foote MD 11/10/2018 11:42
[2018-11-10] MEDS: Enoxaparin(*) 40 MG/0.4 ML SYR SUBCUT SCH (14:02)
[2018-11-10] MEDS ORDERED: Atorvastatin* 40 MG TAB PO SCH (21:00)
--- NOTE | 2018-11-10 22:26 | DS ---
DISCHARGE SUMMARY: ADDENDUM: DISCHARGE MEDICATIONS: New home medications: 1. Aspirin 81 mg p.o. daily. 2. Plavix 75 mg p.o. daily x30 days. Changed home medications: Simvastatin 20 mg p.o. daily changed to 40 mg p.o. daily. Continued home medications: 1. Ibuprofen 800 mg p.o. daily p.r.n. 2. Osteo Bi-Flex 1 cap p.o. daily. ASHLEY TORRES, ISATU [id number]/[facility] #: [id number] [facility] HOSPITALDeshaun
--- NOTE | 2018-11-10 23:32 | DS ---
CC: Dr. Jas Mancia; Dr. Gomez* DISCHARGE SUMMARY: DATE OF ADMISSION: 11/09/18 DATE OF DISCHARGE: 11/10/18 PRIMARY CARE PROVIDER: Dr. Jas Mancia. ATTENDING WHILE IN THE HOSPITAL: Dr. Cruz* (dictated by Ashley Torres NP). CONSULTING NEUROLOGIST: Dr. Gomez. PRIMARY DIAGNOSES: 1. Aphasia. 2. Transient ischemic attack. SECONDARY DIAGNOSES: 1. Small cell lung cancer. 2. Chronic obstructive pulmonary disease. 3. Hypertension. 4. Possible history of heart failure with preserved ejection fraction. HISTORY OF PRESENT ILLNESS/HOSPITAL COURSE: Mrs. Garg is a 78-year-old female with a past medical history significant for small cell lung cancer, COPD , hypertension, hyperlipidemia, who presented to the emergency department on after approximately 24 hours of garbled speech and difficulty finding words. Please see history and physical dictated by OCTAVIO Crowley, for complete summary of events leading up to the hospitalization, but in short, while in the emergency department the patient was noted to have aphasia and slight left-sided weakness. The patient had imaging including head CTA, which read as atherosclerosis, no internal carotid artery stenosis, no aneurysm, vascular malformation, occlusion or stenosis visualized, chronic small vessel ischemic change, sinus mucosal inflammatory disease with an air-fluid level in the frontal sinus. The patient also had a brain CT, which revealed no acute intracranial pathology, chronic small vessel ischemic change, sinus mucosal inflammatory disease. Given the patient's symptoms, she was admitted to the telemetry floor and Neurology was consulted. The patient was outside the tPA window; therefore, she was loaded with aspirin and Plavix. The patient underwent an MRI, which revealed no restricted diffusion to suggest acute infarct, stable nonspecific white matter changes, sinus mucosal inflammatory disease, bilateral mastoid effusions. In addition, the patient had a transthoracic echo, which revealed that her left ventricular cavity size is normal with [id number] increased wall thickness, EF 60% to 65%, normal systolic function, no atrial septal defect or patent foramen ovale, trace amount of regurgitation of mitral valve, mild regurgitation of aortic valve, trace amount of regurgitation of the tricuspid valve. Finally, when compared to study of 07/07/18, there was little change. The patient's symptoms have resolved. While on tele, the patient has remained in sinus rhythm. It should also be noted that the patient has had lab work which revealed mildly elevated LDL of 107. This case was discussed with Dr. Rivera and the patient is safe for discharge to home. The patient is stable for discharge home. Vital Signs: Temp 98.1, HR 68, RR 16, O2 saturation is 96% on room air, BP 146/ 58. REVIEW OF SYSTEMS: A 14-point review of systems was completed and all were negative. PHYSICAL EXAMINATION: General: Ms. Garg is a 78-year-old female who is sitting on the bed. Appears to be in no acute distress. Appears stated age. HEENT: EOMs are intact. PERRLA. Oral mucosa is moist without lesion. Posterior oropharynx is clear. Neck: Supple. No lymphadenopathy. Cardiac: S1, S2 present. No murmurs, rubs, or gallops. Regular rate and rhythm. Respiratory: Lungs are clear to auscultation. No wheezes, rhonchi or rubs. Good aeration. Abdomen: Soft and nontender. Bowel sounds are normoactive. Extremities: No edema. No clubbing or cyanosis. Pedal pulses are 2+ bilaterally. Musculoskeletal: No pain or deformities. Skin: Grossly intact. Neuro: Cranial nerves II through XII are grossly intact. Sensation is intact. Coordination is intact. No drift. Strength is 5/5 in the upper and lower extremities bilaterally. DIAGNOSTIC STUDIES/LABORATORY DATA: WBC 2.6, hemoglobin 11.9, hematocrit 35, platelets 128. Sodium 137, potassium 3.6, chloride 104, carbon dioxide 29, BUN 10, creatinine 0.44. Hemoglobin A1c is 5.6. Magnesium 2.0. Triglycerides 63, total cholesterol 194, LDL 107, HDL 74.5. EKG: Normal sinus rhythm. Imaging: As above, in the HPI. DISCHARGE PLAN/FOLLOWUP: 1. Aphasia: The patient's aphasia has resolved since her admission. Daughter , at bedside, reports her speech is now at baseline. 2. Transient ischemic attack: It is suspected that the patient's aphasia and left- sided weakness noted on her admission to the emergency department were secondary to a possible TIA. The patient should continue aspirin and Plavix x30 days. The patient should stop Plavix after 30 days, but continue aspirin 81 mg. In addition, given the patient's LDL of 107, which is above goal of 70, I had increased her simvastatin from 20 mg daily to 40 mg daily. Finally, I have encouraged the patient to follow up with Dr. Gomez in 3 weeks. 3. Lung cancer: The patient is currently in remission. She is status post chemo and radiation. The patient is to follow up with her primary care. 4. Chronic obstructive pulmonary disease: The patient has a history of COPD, but is not currently on medications. The patient is to follow up with her primary care as needed. 5. Hypertension: Once again, the patient carries a history of hypertension, but she is not currently on medications. The patient was noted to be mildly hypertensive on admission with systolic in the 170s to 180s. Today, she is 146/ 58. I am reluctant to start the patient on blood pressure medications given the acute setting. I would encourage her primary care to complete an ambulatory BP study and address BP as necessary. 6. Followup: The patient has been encouraged to followup with her primary care in 1 to 3 days. The patient has been encouraged to call Dr. Gomez's office first thing tomorrow and make a followup in 3 weeks. The patient and daughter both stated understanding. 7. Education: The patient and daughter were educated on signs and symptoms of new or worsening condition and when to return to the emergency department. Both stated their understanding. TIME SPENT: Approximately 40 minutes were spent on this discharge, greater than half that time was spent [id number] with the patient and daughter, discussing discharge plans and instructions. This is a summarized report of a complex medical history and hospital stay. For further details, please see entire medical record. This plan was also discussed with my attending, Dr. Cruz, who is in agreement with my plan of care. ASHLEY TORRES NP ADDENDUM TO DISCHARGE SUMMARY: DISCHARGE MEDICATIONS: New home medications: 1. Aspirin 81 mg p.o. daily. 2. Plavix 75 mg p.o. daily x30 days. Changed home medications: Simvastatin 20 mg p.o. daily changed to 40 mg p.o. daily. Continued home medications: 1. Ibuprofen 800 mg p.o. daily p.r.n. 2. Osteo Bi-Flex 1 cap p.o. daily. ASHLEY TORRES, ISATU [id number]/[facility] #: [id number]/CPS #: [id number] TIA
[2018-11-10 23:48] VITALS: BP 126/75
== END 2018-11-10 19:40 | disposition home or self-care (01) ==
LOC: ED 09:37 → MEDTELE 13:43
PROVIDERS: ADMIT Internal Medicine; ATTEND Internal Medicine
DX: R47.01 Aphasia (principal); I63.9 Cerebral infarction, unspecified; F17.210 Nicotine dependence, cigarettes, uncomplicated; C34.90 Malignant neoplasm of unspecified part of unspecified bronchus or lung; J44.9 Chronic obstructive pulmonary disease, unspecified; I10 Essential (primary) hypertension; Z96.642 Presence of left artificial hip joint; Z96.652 Presence of left artificial knee joint; Z92.21 Personal history of antineoplastic chemotherapy; Z79.82 Long term (current) use of aspirin; Z79.899 Other long term (current) drug therapy
CPT/HCPCS: 36415; 70450; 70496; 70498; 70551; 80048; 80053; 80061; 81003; 81015; 83036; 83605; 83735; 84484; 85025; 85610; 85730; 87086; 93005; 93306; 96372; 99285; A9270-GY; G0378; G8978-GP-CI; G8979-GP-CI; G8980-GP-CI; J1650; Q9967

== ENCOUNTER 2019-06-14 15:05 | Inpatient (IN) | payer MEDICARE, OTHER ==
[2019-06-14] MEDS ORDERED: NS 0.9% 1000 ML** 1,000 ML IV ONE ×2 (15:27→19:27)
[2019-06-14] MEDS ORDERED: Ondansetron INJ* 2 MG/ML VIAL IV ONE (15:27)
--- NOTE | 2019-06-14 15:28 | ED ---
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 Patient was found unresponsive sitting at the table with aphasia. Patients last known well was yesterday at 2230. Patient has a new cough. She does not have any history of DVT or PE. Patient is on oxygen at home at night. Patient is a smoker. The patient rates the pain 0/10 in severity. Symptoms aggravated by nothing. Symptoms alleviated by nothing. Patient is vomiting in the ED room. - History Of Current Complaint Stated Complaint: AMS,POSS CVA PER EMS Time Seen by Provider: 06/14/19 15:09 Hx Obtained From: Family/Tube Cutter Operator - Daughter Onset/Duration: Unknown, Still Present Timing: Constant Severity Initially: Mild Severity Currently: Mild Character: Confusion Aggravating Factor(s): Nothing Alleviating Factor(s): Nothing Associated Signs And Symptoms: Positive: Nausea, Vomiting - Allergies/Home Medications Allergies/Adverse Reactions: Allergies Allergy/AdvReac Type Severity Reaction Status Date / Time No Known Allergies Allergy Verified 11/09/18 09:43 Home Medications: Home Medications Aspirin EC TAB* [Ecotrin EC Low Dose 81 MG*] 81 mg PO DAILY 06/14/19 [History Confirmed 06/14/19] Glucosamine/D3/Boswellia Clara [Osteo Bi-Flex/5-Loxin Adv] 1 tab PO DAILY [History Confirmed 06/14/19] PMH/Surg Hx/FS Hx/Imm Hx Endocrine/Hematology History: Denies: Hx Diabetes Cardiovascular History: Reports: Hx Hypertension - Hx PF , WITH LOSS BP OK, NOT TAKING ANY MEDICATION Denies: Hx Pacemaker/ICD Respiratory History: Reports: Hx Chronic Obstructive Pulmonary Disease (COPD), Hx Sleep Apnea - OXYGEN 2 L VIA NASAL CANNULA AT NIGHT Denies: Hx Asthma History: Denies: Hx Dialysis, Hx Renal Disease Musculoskeletal History: Reports: Hx Arthritis - HANDS, Hx Osteoporosis Sensory History: Reports: Hx Contacts or Glasses Comment Only: Hx Hearing Aid - [employer] Opthamlomology History: Reports: Hx Contacts or Glasses Neurological History: Reports: Other Neuro Impairments/Disorders - CYST ON PITUTARY GLAND Psychiatric History: Denies: Hx Panic Disorder - Cancer History Cancer Type, Location and Year: LUNG CANCER Hx Chemotherapy: No Hx Radiation Therapy: No - Surgical History Surgery Procedure, Year, and Place: PORT-REMOVED ,RT KNEE, LT HIP PIN, GANGLION CYST ON ELBOW. RIGHT KNEE REPLACEMENT 2005. REMOVED CYST PITUITARY GLAND. BILATERAL HIP REPLACMENTS 07/2010 RIGHT-03/2007 LEFT. REPLACE BONE IN LEFT LEG Hx Anesthesia Reactions: No Infectious Disease History: No Infectious Disease History: Denies: Traveled Outside the [place] in Last 30 Days - Family History Known Family History: Positive: Cardiac Disease, Diabetes Family History: Stroke. - Social History Alcohol Use: None Hx Substance Use: No Substance Use Type: Reports: None Hx Tobacco Use: Yes Smoking Status (MU): Heavy Every Day Tobacco Smoker Type: Cigarettes Amount Used/How Often: 1 PPD X 40 YEARS, PAST YEAR 1/2PPD OR LESS Have You Smoked in the Last Year: Yes Review of Systems Positive: Cough Positive: Vomiting, Nausea Neurological: Other - AMS All Other Systems Reviewed And Are Negative: Yes Physical Exam - Summary Physical Exam Summary: Constitutional: Patient appears unwell, nausea and vomiting at bedside. Skin: Warm, Dry HENT: Normocephalic; Atraumatic Eyes: Conjunctiva normal Neck: Musculoskeletal ROM normal neck. (-) JVD, (-) Stridor, (-) Tracheal deviation Cardio: Tachycardic. Pulmonary/Chest wall: Decreased breath sounds bilaterally. Abd: Soft, (-) tenderness, (-) Distension, (-) Guarding, (-) Rebound Musculoskeletal: (-) Edema Lymph: (-) Cervical adenopathy Neuro: Moving all extremities, no focal neural deficits. GCS: 15 Psych: Mood and affect Normal Triage Information Reviewed: Yes Vital Signs On Initial Exam: Initial Vitals Temp Pulse Resp BP Pulse Ox 101.9 F 60 18 188/122 91 06/14/19 15:14 06/14/19 15:14 06/14/19 15:14 06/14/19 15:14 06/14/19 15:14 Vital Signs Reviewed: Yes Procedures - Sedation Patient Received Moderate/Deep Sedation with Procedure: No Diagnostics - Vital Signs Vital Signs Temp Pulse Resp BP Pulse Ox 06/14/19 15:14 101.9 F 60 18 188/122 91 - Laboratory Result Diagrams: 06/14/19 15:52 06/14/19 15:51 Lab Statement: Any lab studies that have been ordered have been reviewed, and results considered in the medical decision making process. - Radiology CXR Radiology Interpretation Completed By: Radiologist Summary of Radiographic Findings: PERSISTENT INTERSTITIAL OPACIFICATION. THE DIFFERENTIAL INCLUDES PULMONARY INTERSTITIAL EDEMA VERSUS CHRONIC INTERSTITIAL LUNG DISEASE. Dr. eNss has reviewed this radiology report. - CT Brain CT Interpretation Completed By: Radiologist Summary of CT Findings: #. No acute intracranial process evident. #. Stigmata of chronic small vessel ischemic disease. #. Mucosal thickening at the ethmoid and LEFT frontal sinuses without definitive findings of acute sinusitis. Dr. Ness has reviewed this radiology report. - EKG 1512 Cardiac Rate: NL - 95 BPM EKG Rhythm: Sinus Rhythm Summary of EKG Findings: An EKG at 1512 revealed NSR at 95 BPM, no STEMI. Dr. Ness has reviewed and interpreted this EKG. 1758 Cardiac Rate: NL - 97 BPM EKG Rhythm: Sinus Rhythm Summary of EKG Findings: An EKG at 1758 revealed NSR at 97 BPM, similar to prior EKG, no STEMI. Dr. Ness has reviewed this radiology report. Re-Evaluation - Re-Evaluation First Eval Re-Evaluation Time: 16:33 Comment: Discussed results with patient's family. 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 In the ED course patient received fluids, Zofran, and Apresoline. An EKG at 1512 revealed NSR at 95 BPM, no STEMI. CXR: PERSISTENT INTERSTITIAL OPACIFICATION. THE DIFFERENTIAL INCLUDES PULMONARY INTERSTITIAL EDEMA VERSUS CHRONIC INTERSTITIAL LUNG DISEASE. Influenza A and B both negative. At 1620, discussed patient case with Dr. Bo, radiologist, who re-read the patients CXR and confirmed the presence of a skin fold as opposed to a PTX. UA revealed 1 + protein 1+ ketones, 2+ blood, 1.009 specific gravity, 3+ RBC. I gave patient Rocephin. Blood work revealed: sodium 134, chloride 97, creatinine 0.48, glucose 108, BNP 113, troponin 0.03, lymphocytes 0.5, lactic acid 2.1. ABG revealed pH 7.50, pO2 66, base excess 4.9. Brain CT: #. No acute intracranial process evident. #. Stigmata of chronic small vessel ischemic disease. #. Mucosal thickening at the ethmoid and LEFT frontal sinuses without definitive findings of acute sinusitis. An EKG at 1758 revealed NSR at 97 BPM, similar to prior EKG, no STEMI. Discussed patient case with Dr. Patterson hospitalist, who accepted the patient for admission to [facility]. - Diagnoses Provider Diagnoses: SIRS (systemic inflammatory response syndrome), Elevated troponin - Provider Notifications Discussed Care Of Patient With: Trevin Bo Time Discussed With Above Provider: 16:20 Instructed by Provider To: Other - Discussed patient case with Dr. Bo, radiologist, who re-read the patients CXR and confirmed the presence of a skin fold. At 1658 discussed patient case with Dr. Jackson, hospitalist, who requested the brain CT read, blood gas, and antibiotics before she can admit the patient. At 1843, discussed patient case with Dr. Patterson, hospitalist, who accepted the patient for admission to [facility]. Discharge ED - Sign-Out/Discharge Documenting (check all that apply): Patient Departure - Admit - Discharge Plan Condition: Fair Disposition: ADMITTED TO [facility] Referrals: Jas Mancia MD [Primary Care Provider] - - Attestation Statements Document Initiated by Scribe: Yes Documenting Scribe: Baltazar Hartley Provider For Whom Scribe is Documenting (Include Credential): Agus Ness DO [employer] Attestation: Baltazar James scribed for Agus Ness DO on 06/14/19 at 1845. Status of Scribe Document: Ready
[2019-06-14 16:00] LABS: ABS Lymphocytes 0.5 10^3/ul (1.0-4.8); ABS Monocytes 0.3 10^3/ul (0-0.8); ABS Neutrophils 6.1 10^3/ul (1.5-7.7); Eosinophil % 0.2 %; Hematocrit 40 % (35-47); Hemoglobin 13.8 g/dL (12.0-16.0); Lymphocyte % 7.7 %; Mean Corpuscular HGB Conc 34 g/dL (31-36); Mean Corpuscular Hemoglobin 30 pg (27-31); Mean Corpuscular Volume 89 fL (80-97); Mean Platelet Volume 8.1 fL (7.4-10.4); Platelet Count 164 10^3/uL (150-450); Red Blood Count 4.52 10^6 /uL (3.70-4.87); Red Cell Distribution Width 13 % (10-15)
[2019-06-14 16:03] LABS: Influenza A Molecular NEGATIVE (Negative); Influenza B Molecular NEGATIVE (Negative)
[2019-06-14 16:21] LABS: Troponin I 0.03 ng/mL (<0.03)
[2019-06-14 16:21] LABS: Urine Appearance Cloudy; Urine Bilirubin Negative (Negative); Urine Blood 2+ (Negative); Urine Color Straw; Urine Glucose Negative (Negative); Urine Ketones 1+ (Negative); Urine Nitrite Negative (Negative); Urine Protein 1+(30 mg/dL) (Negative); Urine Specific Gravity 1.009 (1.010-1.030); Urine Urobilinogen Negative (Negative)
[2019-06-14] MEDS ORDERED: hydrALAZINE IV* 20 MG/ML VIAL IV SLOW PU ONE ×2 (16:22→18:30)
[2019-06-14 16:23] LABS: Urine Bacteria Absent (Absent); Urine Red Blood Cell 3+(>10/hpf) (Absent); Urine White Blood Cell Trace(0-5/hpf) (Absent)
[2019-06-14] MEDS ORDERED: cefTRIAXone(*) 1 GM in NS 0.9% 50 ML* 50 ML IVPB ONE (16:59)
[2019-06-14 17:14] LABS: ALT 7 U/L (7-52); AST 17 U/L (13-39); Albumin 4.5 g/dL (3.2-5.2); Albumin/Globulin Ratio 1.6 (1-3); Alkaline Phosphatase 95 U/L (34-104); Anion Gap 11 mmol/L (2-11); BUN/Creatinine Ratio 16.7 (8-20); Blood Urea Nitrogen 8 mg/dL (6-24); CO2 Carbon Dioxide 26 mmol/L (22-32); Calcium 9.9 mg/dL (8.6-10.3); Chloride 97 mmol/L (101-111); EGFR African American 152.1 (>60); EGFR Non-African American 125.7 (>60); Globulin 2.8 g/dL (2-4); Glucose 108 mg/dL (70-100); Sodium 134 mmol/L (135-145); Total Protein 7.3 g/dL (6.4-8.9)
[2019-06-14 19:02] LABS: Troponin I 0.05 ng/mL (<0.03)
[2019-06-14] MEDS ORDERED: Acetaminophen TAB* 325 MG PO PRN (19:37)
[2019-06-14] MEDS ORDERED: Ondansetron INJ* 2 MG/ML VIAL IV PRN (19:37)
[2019-06-14] MEDS ORDERED: NS 0.9% 1000 ML** 1,000 ML IV SCH (19:45)
[2019-06-14] MEDS: Atorvastatin* 20 MG TAB PO SCH (21:53)
[2019-06-14] MEDS: Enoxaparin(*) 40 MG/0.4 ML SYR SUBCUT SCH (21:54)
[2019-06-14 22:09] LABS: Troponin I 0.06 ng/mL (<0.03)
--- NOTE | 2019-06-14 23:34 | HP ---
ADMISSION HISTORY AND PHYSICAL DATE OF ADMISSION: 06/14/19 PROVIDER: Shayy Ramos NP ATTENDING PHYSICIAN: Dr. Lotus Hugo.* (DICTATED BY SHAYY RAMOS NP) PRIMARY CARE PHYSICIAN: Dr. Mancia. Also seen by Dr. Dupree and Dr. Preciado. CHIEF COMPLAINT: Unresponsiveness. HISTORY OF PRESENT ILLNESS: This is a 78-year-old female with a past medical history significant for a small cell lung cancer, COPD and previous TIA, who presented to emergency room on 06/14/19 for altered mental status. She was last known well at 2230 last night, when she spoke to her daughter over the phone. Yesterday, she had gone to a casino with her family members and had been ambulating well, completely alert and oriented with no evidence of feeling unwell. She was found seated in kitchen with no pants in her chair at just before 2 p.m. this afternoon. Initially, she was very hard to wake up and when she did, she would not speak, would not make eye contact, and was not clear that she was understanding what was happening around her and at that point that is when EMS was called. In the emergency room, she vomited and was noted to have coughed, but still remain altered and not responding to any direct commands with only purposeful and unpurposeful movements in upper and lower extremities. Hospitalist were asked to evaluate the patient for admission. Labs were drawn. Imaging was done. PAST MEDICAL HISTORY: Small cell lung cancer, status post radiation and chemo with last round performed 2 years, COPD, hypertension, hyperlipidemia, TIA, pituitary adenoma, acromegaly, sleep apnea with 2 L of oxygen worn at night. PAST SURGICAL HISTORY: Biopsy of pituitary adenoma, port placement and removal , bilateral hip replacement, right total knee replacement, and left hip cadaver bone graft. MEDICATIONS: 1. Aspirin 81 mg p.o. daily. 2. Simvastatin 40 mg p.o. at bedtime. 3. Ibuprofen 800 mg p.o. b.i.d. 4. Osteo Bi-Flex 1 tab p.o. daily. ALLERGIES: None. FAMILY HISTORY: Father decreased due to diabetes complications. Mother secondary to heart failure and stroke. Brother had colon cancer. SOCIAL HISTORY: Current half-pack a day smoker. Family denies any alcohol or recreational substance use. 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 REVIEW OF SYSTEMS: Unable to be performed secondary to altered mentation, however, according to family members she is very hard of hearing. Normally had bilateral hearing aids in. When she initially had her cancer 2 years ago, she lost 100 pounds over 6 pounds though has been able to maintain her weight since then. She has good appetite and 3 times a week she gets home cooked meals, otherwise, she normally eats a lot of TV dinners and higher sugar foods. PHYSICAL EXAMINATION GENERAL: This is a well-developed, older woman seen resting in the stretcher, appears to be mildly distressed, moves around in the stretcher as if she is experiencing discomfort. VITAL SIGNS: 99.5 temp, 97 pulse, 17 respirations, 94% oxygen on room air, 153/ 69 blood pressure. HEENT: Conjunctivae pink and moist. PERRLA. EOMs intact. Mucous membranes are tachy, slightly dry. Has prominent facial features including prominent jaw and nose. NECK: Supple. RESPIRATORY: Lung sounds clear throughout bilaterally on room air. No accessory muscle use noted. CARDIAC: S1, S2 present. Heart rate regular. No murmurs, gallops or rubs appreciated though tachycardic. No bilateral lower extremity edema. ABDOMEN: Soft, nontender, nondistended with positive bowel sounds x4. MUSCULOSKELETAL: No clubbing or cyanosis of the digits, full range of motion. SKIN: No open areas or rashes appreciated. NEURO: Unable to perform an adequate neuro check due to lack of cooperation, though sensation appeared to be intact to light touch. PSYCH: Unable to assess orientation. DIAGNOSTIC STUDIES/LAB DATA: Pertinent lab data: Sodium 134, chloride 97, creatinine 0.48, glucose 108, lactic acid 2.1. Troponin 0.05. Ammonia 56. B- natriuretic peptide 113. Blood gas, pH 7.5, PO2 66, PCO2 36, base excess of 4.9. Urine shows 1+ protein, 1+ ketones, 2+ blood, 3+ rbcs and negative for influenza A or B. Diagnostic studies: Brain CT shows no acute intracranial process evident, stigmata of chronic small vessel ischemic disease, mucosal thickening at the ethmoid and left frontal sinuses without definitive findings of acute sinusitis. Chest x-ray: The impression showed persistent interstitial opacification. Differential includes pulmonary interstitial edema versus chronic interstitial lung disease. ASSESSMENT AND PLAN: 1. Sepsis due to unknown source with associated encephalopathy. Her urine was negative for leukocyte esterase or nitrite. We are awaiting the results of blood cultures. Her chest x-ray was not definitive for any pneumonia or any other infection. We feel that this is sepsis as evidenced by tachycardia, tachypnea and her white blood cell count though within traditional normal limits , is elevated for her. She typically runs between 2.6 and the 3 range though is currently at 7. It is possible that this could be a viral etiology. It is doubtful that this is meningitis as she is unable to move her neck without pain and does not seem to have any severe headache or photosensitivity, however, if she gets worse , it is possible that she might need a lumbar puncture though I do not feel that it is necessary at this time. It is also possible that her encephalopathy could be secondary to seizures that has been previously undiagnosed. 2. Elevated troponin. We will continue to trend until they go down. They initially was 0.03, increased to 0.05. Because the patient is unable to provide any review of systems, it is not clear that she is experiencing any chest pain. It is possible that this is secondary to the sepsis process. However, it is also possible that she could be having a pulmonary embolism. We will add on a D-dimer to her labs. Should these numbers continue trend up, then I recommend that Cardiology be involved. 3. Hematuria. There has been evidence of microscopic blood within the past 3 UAs that has been done here at [facility]. We will recheck in the a.m. There was no obvious signs of urinary tract infection that could be causing the blood. It is a possibility that could be caused by hypertension or kidney stone, so should the UA still show persistent urine tomorrow, I would recommend getting a renal ultrasound. 4. Hyperlipidemia. She is to continue her simvastatin. 5. Sleep apnea. She does not use a CPAP at home rather she uses 2 L of oxygen at night which we are to continue here. 6. DVT prophylaxis. Initiate Lovenox. 7. Code statu: Full code. DISPOSITION: To admit OBV to [address] [place] [address]. CONDITION: Guarded. TIME SPENT: Time spent on the patient is about 60 minutes with half of that spent [id number]. SHAYY RAMOS, BIBLIOGRAPHIC SERVICES SPECIALIST [id number]/[facility] #: [id number] TIA
[2019-06-15 07:00] LABS: ABS Lymphocytes 0.8 10^3/ul (1.0-4.8); ABS Monocytes 0.7 10^3/ul (0-0.8); ABS Neutrophils 4.4 10^3/ul (1.5-7.7); Eosinophil % 0.1 %; Hematocrit 37 % (35-47); Hemoglobin 12.6 g/dL (12.0-16.0); Lymphocyte % 13.8 %; Mean Corpuscular HGB Conc 35 g/dL (31-36); Mean Corpuscular Hemoglobin 31 pg (27-31); Mean Corpuscular Volume 89 fL (80-97); Mean Platelet Volume 8.4 fL (7.4-10.4); Platelet Count 150 10^3/uL (150-450); Red Blood Count 4.13 10^6 /uL (3.70-4.87); Red Cell Distribution Width 13 % (10-15); White Blood Count 5.9 10^3/uL (3.5-10.8)
[2019-06-15 07:11] LABS: BUN/Creatinine Ratio 20.8 (8-20); Calcium 9.1 mg/dL (8.6-10.3); EGFR African American 152.1 (>60); EGFR Non-African American 125.7 (>60)
[2019-06-15] MEDS: cefTRIAXone(*) 2 GM in NS 0.9% 100 ML* 100 ML IVPB SCH (08:15)
[2019-06-15] MEDS: Aspirin EC TAB* 81 MG TAB.EC PO SCH (08:15)
[2019-06-15 08:51] LABS: Troponin I 0.06 ng/mL (<0.03)
--- NOTE | 2019-06-15 09:23 | PN ---
Subjective Date of Service: 06/15/19 Interval History: Seen with daughter at bedside Pt practically averbal, dose voice some words like "wow" when cold hands touch her belly otherwise cannot meaningfully contribute to conversation Objective Active Medications: Acetaminophen (Tylenol Tab*) 650 mg PO Q4H PRN PRN Reason: MILD PAIN or TEMP > 100.4 Aspirin (Aspirin Ec Tab*) 81 mg PO DAILY [facility] Last Admin: 06/15/19 08:15 Dose: 81 mg Atorvastatin Calcium (Lipitor*) 20 mg PO BEDTIME [facility] Last Admin: 06/14/19 21:53 Dose: 20 mg Enoxaparin Sodium (Lovenox(*)) 40 mg SUBCUT Q24H [facility] Last Admin: 06/14/19 21:54 Dose: 40 mg Ceftriaxone Sodium 2 gm/ (Sodium Chloride) 100 mls @ 200 mls/hr IVPB Q24H [facility] Last Admin: 06/15/19 08:15 Dose: 200 mls/hr Ondansetron HCl (Zofran Inj*) 4 mg IV Q4H PRN PRN Reason: NAUSEA/VOMITING Vital Signs - 8 hr 06/15/19 06/15/19 06/15/19 03:06 07:21 08:00 Temperature 99.7 F 101.1 F Pulse Rate 89 85 Respiratory 18 17 18 Rate Blood Pressure 168/77 174/72 (mmHg) O2 Sat by Pulse 96 95 Oximetry Oxygen Devices in Use Now: None Appearance: sitting up in bed, smiling, NAD Eyes: No Scleral Icterus, PERRLA Ears/Nose/Mouth/Throat: Clear Oropharnyx, Mucous Membranes Moist Neck: NL Appearance and Movements; NL JVP, Trachea Midline, - - thyloid enlarged , no nodules Respiratory: Symmetrical Chest Expansion and Respiratory Effort, - - rales left mid lung posteriorly Cardiovascular: RRR, - - 2/6 JEANA LLSB Abdominal: NL Sounds; No Tenderness; No Distention, No Hepatosplenomegaly Lymphatic: No Cervical Adenopathy Extremities: No Edema, - - no tenderness over any joints including hips Skin: No Rash or Ulcers Neurological: - - averbal, moves all extremities and keeps all extremities elevated, does not follow commands but does mimic movements such as keeping mouth open and sticking tounge out, EOMI, PERRL, face symmetric Result Diagrams: 06/15/19 06:29 06/15/19 06:29 Assess/Plan/Problems-Billing Assessment: 78 F h/o TIA (10/2018), small cell lung ca s/p chemo/rt (completed 2 yrs [employer]), acromegaly, pituitary adenoma, COPD on 2L O2 at night, ELÍAS not on CPAP p/w fevers and altered mental status - Patient Problems (1) Encephalopathy Comment: Acute metabolic encaphalopathy suspected in setting of sepsis Sepsis with high fevers and unknown source - patient's daughter has been sick but unclear if there was contact Pt with rales in left lung - no e/o PNA on CXR - will check CT chest now Enlarged thyroid on exam - add on TSH Urine with hematuria but no other e/o infx- Follow urine and blood cultures If change in clinical status will consider LP however currently improving since yesterday (except for fevers) looks well, comfortable and I doubt acute bacterial meningitis Doubt CVA in setting of fevers but low threshold for MRI brain (2) Hypertension Comment: on no medications at home hypertensive in setting of acutre illness and fevers Will not add new PO medication unless >180 or remains elevated after fever abates (3) COPD (chronic obstructive pulmonary disease) Comment: reported 2L O2 at night on on cotroller medications as outpatient (4) Elevated troponin Comment: now level suspect deman in setting of suspect sepsis (5) DVT prophylaxis Comment: lovenox
[2019-06-15 10:52] LABS: TSH (Thyroid Stimulating Horm) 0.07 mcIU/mL (0.34-5.60)
[2019-06-15 14:44] LABS: Free T4 1.21 ng/dL (0.61-1.12)
[2019-06-15] MEDS: Enoxaparin(*) 40 MG/0.4 ML SYR SUBCUT SCH (20:59)
[2019-06-15] MEDS: Atorvastatin* 20 MG TAB PO SCH (20:59)
[2019-06-16] MEDS: Aspirin EC TAB* 81 MG TAB.EC PO SCH (08:09)
[2019-06-16] MEDS: cefTRIAXone(*) 2 GM in NS 0.9% 100 ML* 100 ML IVPB SCH (08:09)
[2019-06-16 08:28] LABS: Urine Appearance Clear; Urine Bilirubin Negative (Negative); Urine Blood 2+ (Negative); Urine Color Yellow; Urine Glucose Negative (Negative); Urine Ketones 1+ (Negative); Urine Nitrite Negative (Negative); Urine Protein Negative (Negative); Urine Specific Gravity 1.012 (1.010-1.030); Urine Urobilinogen Negative (Negative)
[2019-06-16 08:30] LABS: Urine Bacteria Absent (Absent); Urine Red Blood Cell 2+(6-10/hpf) (Absent); Urine Squamous Epithelial Cell Present (Absent); Urine White Blood Cell Trace(0-5/hpf) (Absent)
[2019-06-16 08:58] LABS: Follicle Stimulating Hormone 7.1 mIU/mL
[2019-06-16] MEDS: Clopidogrel TAB* 75 MG PO SCH (11:54)
[2019-06-16 12:07] LABS: HDL Cholesterol 63.3 mg/dL
[2019-06-16] MEDS: Iohexol 350* (CONTRAST) 500 ML MDV IV ONE ×2 (12:28→12:30)
--- NOTE | 2019-06-16 13:34 | CONS ---
CC: Dr. Jas Mancia * CONSULTATION REPORT: DATE OF CONSULT: 06/16/19 LOCATION: She is currently in room 450, bed 1. PRIMARY CARE PROVIDER: Dr. Jas Mancia. REASON FOR ADMISSION: Speech difficulties, weakness. HISTORY OF PRESENT ILLNESS: Ms. Garg is a very nice 78-year-old female. Her daughter is at the bedside and able to provide some history. The patient has a history of small cell lung cancer, status post radiation and chemotherapy 2 years ago, apparently in remission. She has a history of a pituitary adenoma with acromegaly. This was apparently biopsied years ago but no surgery was done. History of sleep apnea, on oxygen at night. Hyperlipidemia; hypertension ; COPD; smoker, smoking about a half pack a day, who was admitted to the hospital back in October 2018. At that time, she presented with TIA like symptoms , speech difficulties. Stroke workup was done at that time. Neurology was consulted and she saw Dr. Gomez. Workup including head CTA, CT scan, and MRI were negative. The MRI showed no evidence of an acute stroke. She was outside of the tPA window, was treated aggressively with medical therapy including aspirin and Plavix. Echocardiogram at that time showed an ejection fraction of 60% to 65%, no atrial septal defect or patent foramen ovale was noted. Compared to prior study from June, there was no change. She remained in sinus rhythm on telemetry. There is no history of AFib. On Friday of this week, 4 days ago, she was in her usual state of health. She went to the [facility] and came home. She was brought to the emergency room on 06/14/19, couple of days ago, with the last known well at 2230 the night before when she had spoken to her daughter over the phone. She was per the daughter very awake, alert, oriented x3 when she went to the [facility]. Her speech was good that night. She was not having any problems. The next day she was found in the kitchen, seated in a chair, hard to wake up and with some speech difficulties noted, was not making eye contact. The daughter states that this was a major change for her. She did vomit in the ER and was having intermittent response with some purposeful and nonpurposeful movements noted in the history and physical. She was found to be septic and they thought that she likely had an encephalopathy. Sepsis was diagnosed due to tachycardia, tachypnea. White cell count was elevated for her. There was no reported neck sensitivity or photophobia. Over the next day, the patient has waxed and waned. The family notes that she has had some intermittent speech, but only a few words, at times she would say the name of her daughter or say I love you, but other times was not speaking. She also seemed to be neglecting her right side. The daughter noted that this morning, she was not looking at her on the right side. Based on these symptoms , I was called to evaluate. On my evaluation, the patient had difficulty with speech, was in fact neglecting on the right side and not looking over at me. She was unable to answer any questions meaningfully. The daughter notes that she is hard of hearing but has hearing aids in place. Her speech was very garbled and most of my history was obtained from review of medical records and also speaking with the family and the treating healthcare provider. After subsequent evaluation, it was determined that she was certainly outside of the tPA window and appeared to be outside of any large vessel occlusion window as well as her last normal was 2230 Friday night, 06/13/19. Initially though a CT head and CTA of the head and neck were ordered and she will be going down for those shortly, there has been no significant change in her status since I was called. The daughter states that there has been no reported illnesses. She has been doing well prior to Friday. She had no further TIA like symptoms after her hospitalization. PAST MEDICAL HISTORY: As noted above. PAST SURGICAL HISTORY: Includes a pituitary adenoma biopsy, prior chemotherapy port placement and removal, hip replacements, right total knee replacement. MEDICATIONS AT HOME: 1. Aspirin 81 mg p.o. daily. 2. Simvastatin 40 mg at bedtime. 3. Ibuprofen 800 mg p.o. b.i.d. ALLERGIES: None. FAMILY HISTORY: Significant for father with diabetes, from complications. Mother with heart failure and stroke. Brother with colon cancer. SOCIAL HISTORY: Half pack a day smoker. No drug use or alcohol reported. She lives alone and has 3 children. REVIEW OF SYSTEMS: Review of systems in 14-organ systems was difficult to obtain. The patient could not answer any questions meaningfully, but the daughter states that prior to Friday she was doing well with no complaints. PHYSICAL EXAM: Vital Signs: Temp of 98.7, blood pressure 173/78 to 166/70, pulse of 77 to 91, respiratory rate of 20, O2 sat of 93% to 94%. General: She is a well- nourished, well-developed female, sitting in her chair, daughter is at the bedside. She is well dressed, well groomed. She is atraumatic. She does have frontal bossing. Sclerae are anicteric. Mucous membranes are moist. Oropharynx is clear. Nares are patent. Neck is supple. No thyromegaly. No carotid bruits. Chest: Clear to auscultation bilaterally. Cardiovascular: Regular rate and rhythm. Abdomen is soft, nontender. Extremities: No clubbing , cyanosis, or edema is appreciated. Her skin is warm and dry. On neurologic exam, she is awake, she is alert. She is not following commands consistently, although when I spoke to her from the left side, she did squeeze my fingers as directed. She does smile and seems pleasant. She is hard of hearing and has hearing aids in place. Pupils are equally round, reactive to light. Extraocular muscles appear to be intact. She has gaze in both directions without nystagmus. There is no ptosis appreciated. Her speech is nonfluent. She has dysarthria and an expressive aphasia. She also seems to have a receptive aphasia as well as not following commands at all times. She has a right lower mild flattening of the nasolabial fold. Hearing is diminished bilaterally. Tongue appears midline. Palate raises symmetrically. Motor Exam: She does spontaneously move all extremities. There is no obvious drift, no obvious weakness. She was able to hold both her arms and legs up without drift. Tone appears to be normal. There is no atrophy noted. Sensation: She withdrew to pain x4. Difficult examination, but appears to be symmetric. DTRs were 2+ and symmetric in the upper and lower extremities. Withdrawal Babinski' s. [id number]-[id number] and rapid alternating movements cannot be assessed, but she has no resting tremor. There was no action tremor appreciated. Gait could not be tested at this time. It should be noted that the patient did have significant neglect to me when I stood on the right side. She looked to the left and not seemed to respond to me on the right side, but when I went to the left side, she was more responsive following some commands at times, but intermittently so. DIAGNOSTIC STUDIES/LAB DATA: Lab work includes a CBC with diff that was essentially normal. D-dimer of 283. Basic metabolic profile with a sodium of 133 yesterday, creatinine of 0.48, BUN and creatinine of 20.8. Troponin 0.06. TSH is 0.07, free T4 of 1.21, free T3 of 2.0, FSH of 7.1, prolactin 8.1. Triglycerides 70, cholesterol 177, LDL 100, HDL 63.3. Urine showed 1+ ketones, 2+ blood, 2+ rbc's. Influenza negative. She had a chest CT done yesterday which showed, impression: 1. Left upper lobe pulmonary nodule, unchanged. 2. Emphysema. 3. Mild dependent bilateral lower lobe infiltrate suggestive of atelectasis. 4. Jlmw-ag-pkwiydxu chronic compression fracture of dorsal vertebra, unchanged. Head CT dated, 06/14/19, impression: 1. No acute intracranial process. 2. Stigmata of chronic small vessel disease. 3. Mucosal thickening of the ethmoid and left frontal sinuses without definitive findings of acute sinusitis. ASSESSMENT AND PLAN: Ms. Garg is a 78-year-old female with a history of lung cancer several years ago, status post chemotherapy and radiation, in remission; a history of prior transient ischemic attacks with speech difficulties in October 2018, workup negative, treated aggressively with medications aspirin and Plavix , subsequently on aspirin, no further symptoms. She has a history of risk factors including smoking, hypertension, hyperlipidemia. She is on a statin as well. She has a history of pituitary adenoma with acromegaly diagnosed in the past. At this point, given the neglect on the right side, given the speech difficulties that she is having, I suspect that she has had left-sided stroke, likely left middle cerebral artery territory with resultant findings. The plan is to get a CT and CT angiogram to get an MRI of the brain, echocardiogram. We have restarted Plavix as well as her aspirin, will leave that for 30 days. Assuming that there is no bleeding on the CT scan, I would increase her statin to maximum dose given the persistently elevated LDL, goal LDL is less than 70, watch for hypertension and diabetes and treat those. At this point, she is now 3 days out from her initial symptoms. I think it is okay to be aggressive with her blood pressure over the next few days and lower it as necessary. I do think at this point she is outside of any large vessel occlusion window given the fact that the symptoms started some time after Friday night at 2230. I will check a swallowing study to make sure that she has no dysphagia. She will need speech therapy and physical therapy as well. I updated the daughter on my thoughts and we will continue to follow her closely and make further recommendations as necessary. Thank you for the opportunity to participate in the care of this interesting patient. [id number]/[facility] #: [id number] TIA
--- NOTE | 2019-06-16 15:49 | PN ---
Subjective Date of Service: 06/16/19 Interval History: Patient today is only able to respond to questions with the word "Care". Patient is able to follow limited commands. Patient noted by nursing staff and family to not be looking to her right side. Family History: Unchanged from Admission Social History: Unchanged from Admission Past Medical History: Unchanged from Admission Objective Active Medications: Acetaminophen (Tylenol Tab*) 650 mg PO Q4H PRN PRN Reason: MILD PAIN or TEMP > 100.4 Aspirin (Aspirin Ec Tab*) 81 mg PO DAILY [facility] Last Admin: 06/16/19 08:09 Dose: 81 mg Atorvastatin Calcium (Lipitor*) 40 mg PO BEDTIME [facility] Clopidogrel Bisulfate (Plavix Tab*) 75 mg PO DAILY [facility] Last Admin: 06/16/19 11:54 Dose: 75 mg Enoxaparin Sodium (Lovenox(*)) 40 mg SUBCUT Q24H [facility] Last Admin: 06/15/19 20:59 Dose: 40 mg Ceftriaxone Sodium 2 gm/ (Sodium Chloride) 100 mls @ 200 mls/hr IVPB Q24H [facility] Last Admin: 06/16/19 08:09 Dose: 200 mls/hr Ondansetron HCl (Zofran Inj*) 4 mg IV Q4H PRN PRN Reason: NAUSEA/VOMITING Vital Signs - 8 hr 06/16/19 06/16/19 06/16/19 08:00 08:48 11:15 Temperature Pulse Rate 84 77 Respiratory 16 20 Rate Blood Pressure 166/70 (mmHg) O2 Sat by Pulse 93 Oximetry 06/16/19 06/16/19 12:07 15:15 Temperature 98.7 F 97.5 F Pulse Rate 76 Respiratory 20 Rate Blood Pressure 187/83 (mmHg) O2 Sat by Pulse 95 Oximetry Oxygen Devices in Use Now: None Appearance: Patient is a 78yo female with large hands and prognathism, who appears stated age and is sitting in the bed in [facility]. Eyes: No Scleral Icterus, PERRLA Ears/Nose/Mouth/Throat: NL Teeth, Lips, Gums, Clear Oropharnyx, Mucous Membranes Moist Neck: NL Appearance and Movements; NL JVP, Trachea Midline Respiratory: Symmetrical Chest Expansion and Respiratory Effort, Clear to Auscultation Cardiovascular: NL Sounds; No Murmurs; No JVD, RRR, No Edema Abdominal: NL Sounds; No Tenderness; No Distention, No Hepatosplenomegaly Lymphatic: No Cervical Adenopathy Extremities: No Edema, No Clubbing, Cyanosis Skin: No Rash or Ulcers, No Nodules or Sclerosis Neurological: - - Alert, Marked expressive and receptive aphasia. Possible right sided facial droop and right UE weakness. Questionable lack or response to right sided visual threat. Result Diagrams: 06/15/19 06:29 06/15/19 06:29 Microbiology and Other Data: Microbiology 06/14/19 15:30 Aerobic Blood Culture - Preliminary Blood Venous No Growth Day 2 Anaerobic Blood Culture - Preliminary No Growth Day 2 06/14/19 15:51 Aerobic Blood Culture - Preliminary Blood Venous No Growth Day 1 Anaerobic Blood Culture - Preliminary No Growth Day 1 06/14/19 16:10 Urine Culture - Final Urine Assess/Plan/Problems-Billing Assessment: 78 F h/o TIA (10/2018), small cell lung ca s/p chemo/rt (completed 2 yrs [employer]), acromegaly, pituitary adenoma, COPD on 2L O2 at night, ELÍAS not on CPAP p/w fevers and altered mental status. Found to be markedly aphasic when more alert, likely with CVA. - Patient Problems (1) Encephalopathy Current Visit: Yes Status: Acute Code(s): G93.40 - ENCEPHALOPATHY, UNSPECIFIED SNOMED Code(s): 99466314 Comment: - Acute metabolic encaphalopathy suspected in setting of sepsis - Sepsis with high fevers and unknown source - patient's daughter has been sick but unclear if there was contact - Possible Sinus disease on CT - Abnormal Lung exam, CT chest shows possible Atelectasis vs Infiltrate. Continue Ceftriaxone - Low TSH which is chronic, TFTs non-diagnostic, ? Central hypothyroidism with Pituitary disease. Unlikely apathetic hypothyroidism - MRI brain W/WO pending, clinical CVA. Will assess pituitary (2) CVA (cerebral vascular accident) Current Visit: Yes Status: Acute Code(s): I63.9 - CEREBRAL INFARCTION, UNSPECIFIED SNOMED Code(s): 375051353 Comment: - With marked aphasia and possible right sided facial droop. - History of TIA with Aphasia in 10/2018 - No LVO or CT abnormality on CTA - Appreciate Neuro Input - Start Plavix - LDL still not at goal, increase Statin - Repeat Echo with Bubble and Brain MRI - Not likely cause of encephalopathy, but encephalopathy likely masked CVA - Unlikely encephalitis or Meningitis (3) COPD (chronic obstructive pulmonary disease) Current Visit: Yes Status: Acute Code(s): J44.9 - CHRONIC OBSTRUCTIVE PULMONARY DISEASE, UNSPECIFIED SNOMED Code(s): 01822041 Comment: - Reported 2L O2 at night - Resume controller inhalers when able. (4) Hypertension Current Visit: Yes Status: Acute Code(s): I10 - ESSENTIAL (PRIMARY) HYPERTENSION SNOMED Code(s): 43383039 Comment: - On no medications at home - Will not treat to goal at this time due to CVA with ? Stuttering course - Treat to goal starting tomorrow if no worsening. (5) Elevated troponin Current Visit: Yes Status: Acute Code(s): R79.89 - OTHER SPECIFIED ABNORMAL FINDINGS OF BLOOD CHEMISTRY SNOMED Code(s): 673163300 Comment: - No evidence of Type 1 AK - Continue Primary prevention of AK with Statin, Aspirin, Plavix (6) Pituitary adenoma Current Visit: Yes Status: Acute Code(s): D35.2 - BENIGN NEOPLASM OF PITUITARY GLAND SNOMED Code(s): 287745221 Comment: - With equivocal resection, Differing reports available - Will request records - With Clinical Acromegaly - LH and FSH WNL - TSH low ? central hypothyroidism - MRI brain will assess more clearly (7) DVT prophylaxis Current Visit: Yes Status: Acute Code(s): Z29.9 - ENCOUNTER FOR PROPHYLACTIC MEASURES, UNSPECIFIED SNOMED Code(s): 354069874 Comment: - Lovenox Status and Disposition: Inpatient for evaluation of encephalopathy and CVA
[2019-06-16] MEDS ORDERED: Gadoteridol* (CONTRAST) 279.3 MG/ML 10 ML IV ONE (16:33)
--- NOTE | 2019-06-16 19:00 | ECHO ---
*[facility]* [place] [address] Fax #: [phone] Transthoracic Echocardiogram Patient: Chelsy Garg : 1940 Study Date: 06/16/2019 Age: 78 Gender: F HR: 77 bpm Height: 66 in /167.6 cm BSA: 1.78 m^2 Weight: 151.7 lb /68.9 kg BMI: 24.5 kg/m^2 *Zigzag Elastic Attacher: * Meredith Crespo RDCS RN *Referring Physician: * Bossman Triplett *Reading Physician: * Amanda Sal MD Indications: CVA. History: Chronic obstructive pulmonary disease. Small cell lung cancer with chemotherapy and radiation therapy. TIA. Risk factors: Current tobacco use. Hypertension. Dyslipidemia. Conclusions Summary: - Left ventricle: The cavity size is normal. Wall thickness is mildly to moderately increased with a prominent septal knuckle measuring 1.6 cm. Systolic function is mildly reduced. The estimated ejection fraction is 50%. Hypokinesis of the basal-midinferior myocardium. Doppler parameters are consistent with elevated ventricular end-diastolic filling pressure. - Right ventricle: Systolic function is normal. - Ventricular septum: The interventricular septum appears dyssynchronous. - Atrial septum: Bubble study was negative.The patient was unable to follow directions to perform Valsalva or cough during the bubble studies. - Mitral valve: The mitral valve annulus appears mildly calcified. The leaflets are moderately thickened. Leaflet separation is mildly reduced. There is trace to mild regurgitation. - Aortic valve: The valve is trileaflet. The leaflets are mildly thickened. There is mild regurgitation. - Tricuspid valve: There is trace regurgitation. - Compared with prior study of 11/10/18, inferior hypokinesis and septal dysychrony are new. Ejection fraction previously 60-65%. Valve function is stable. Evaluation for cardiac shunt previously negative. Study data: Transthoracic echocardiogram. Procedure: Transthoracic echocardiography was performed. Image quality was fair. The study was technically limited due to COPD and smoking history. A bubble study was performed using agitated normal saline. Images 118-120. Complete 2D, spectral Doppler, and color flow Doppler. Location: Bedside. Patient status: Inpatient. Patient room number: 450-01. Rhythm: Normal sinus rhythm. Findings Left ventricle: The cavity size is normal. Wall thickness is mildly to moderately increased with a prominent septal knuckle measuring 1.6 cm. Systolic function is mildly reduced. The estimated ejection fraction is 50%. Regional wall motion abnormalities: Hypokinesis of the basal-midinferior myocardium. Doppler parameters are consistent with abnormal left ventricular relaxation (grade 1 diastolic dysfunction). Doppler parameters are consistent with elevated ventricular end-diastolic filling pressure. Right ventricle: The cavity size is normal. Systolic function is normal. Ventricular septum: The interventricular septum appears dyssynchronous. Left atrium: The atrium is mildly dilated. Right atrium: The atrium is normal in size. Atrial septum: No defect or patent foramen ovale is identified by color Doppler or agitated saline. Bubble study was negative on Images 118-120. The patient was unable to follow directions to perform Valsalva or cough during the bubble studies. Mitral valve: The mitral valve annulus appears mildly calcified. The leaflets are moderately thickened. Leaflet separation is mildly reduced. There is no evidence of stenosis. There is trace to mild regurgitation. Aortic valve: The valve is trileaflet. The leaflets are mildly thickened. Cusp separation is at the lower limits of normal. There is no evidence of stenosis. There is mild regurgitation. Tricuspid valve: The valve is structurally normal. There is no evidence of stenosis. There is trace regurgitation. Pulmonic valve: Not well visualized. Aorta: Aortic root: The aortic root is not dilated. Ascending aorta: The ascending aorta is not dilated. Aortic arch: The aortic arch is not visualized. Pericardium: There is no pericardial effusion. Pulmonary arteries: Not well visualized. Systemic veins: Inferior vena cava: The vessel is normal in size. There is (>= 50%) respiratory change in the IVC dimension. Measurements Left ventricle Value Ref Aortic valve Value Ref WILEY, LAX 3.9 cm 3.8 - 5.2 Lori diam, ED 1.7 cm ---- ESD, LAX 2.8 cm 2.2 - 3.5 Peak v, S 1.8 m/sec ---- FS, LAX 30 % 27 - 45 VTI, S 37.2 cm ---- PW, ED (H) 1.1 cm 0.6 - 0.9 Mean grad, S 7.0 mm Hg ---- IVS/PW, ED 1.09 Peak grad, S 13.0 mm Hg ---- E', lat lori, TDI (L) 5.8 cm/sec >=10.0 LVOT/AV, VTI ratio 0.67 -- -- E/e', lat lori, 14 AR peak v 3.1 m/sec ---- TDI AR PHT 509 ms ---- E', med lori, TDI (L) 4.8 cm/sec >=7.0 AR peak grad 38 mm Hg -- -- E/e', med lori, 17 TDI Mitral valve Value Ref E', avg, TDI 5.3 cm/sec Peak E 0.8 m/sec ---- E/e', avg, TDI (H) 15 <=14 Peak A 1.28 m/sec -- -- Decel time 246 ms ---- LVOT Value Ref PHT 65 ms ---- Peak irma, S 1.33 m/sec Mean grad, D 3.0 mm Hg ---- VTI, S 24.8 cm Peak grad, D 9.0 mm Hg ---- Peak grad, S 7 mm Hg Peak E/A ratio 0.6 ---- Mean grad, S 3 mm Hg MVA, PHT 3.4 cm^2 ---- Ventricular septum Value Ref Pulmonic valve Value Ref IVS, ED (H) 1.2 cm 0.6 - 0.9 Peak v, S 0.91 m/sec ---- Peak grad, S 3.0 mm Hg ---- Right ventricle Value Ref WILEY minor ax, A4C (H) 3.6 cm 1.9 - 3.5 Aortic root Value Ref mid Root diam 3.2 cm <4.0 Left atrium Value Ref Ascending aorta Value Ref AP dim, ES 3.10 cm 2.70 - AAo AP diam, S 3.0 cm ---- 3.80 ML dim, A4C 5.2 cm Inferior vena cava Value Ref SI dim, A4C 5.4 cm Diam 1.8 cm ---- Vol/bsa, ES, 1-p (H) 48 ml/m^2 11 - 40 A4C Vol/bsa, ES, A/L (H) 37 ml/m^2 16 - 34 Right atrium Value Ref ML dim, ES, A4C 4.2 cm 2.6 - 4.4 SI dim, ES, A4C 5.1 cm 3.4 - 5.3 Estimated RAP 3 mm Hg Legend: (L) and (H) jaden values outside specified reference range. Prepared and electronically signed by Amanda Sal MD 06/16/2019 18:59
--- NOTE | 2019-06-16 20:07 | PN ---
Hospitalist Progress Note Date of Service: 06/16/19 Was called by the RN to call the VRads to discuss with radiologist the MRI result. She had an MRI brain done: revealed findings of small infarct at the left medial temporal occipital junction. Patient is already on aspirin, plavix was added this admission and on statin.
[2019-06-16] MEDS: Enoxaparin(*) 40 MG/0.4 ML SYR SUBCUT SCH (20:38)
[2019-06-16] MEDS: Atorvastatin* 80 MG TAB PO SCH (20:38)
[2019-06-16] MEDS ORDERED: Atorvastatin* 20 MG TAB PO SCH (21:00)
[2019-06-17 04:51] LABS: ABS Eosinophils 0.1 10^3/ul (0-0.6); ABS Lymphocytes 0.8 10^3/ul (1.0-4.8); ABS Monocytes 0.4 10^3/ul (0-0.8); ABS Neutrophils 2.7 10^3/ul (1.5-7.7); Eosinophil % 2.1 %; Hematocrit 35 % (35-47); Lymphocyte % 20.1 %; Mean Corpuscular HGB Conc 35 g/dL (31-36); Mean Corpuscular Hemoglobin 30 pg (27-31); Mean Corpuscular Volume 88 fL (80-97); Nucleated Red Blood Cells % 0.1; Platelet Count 147 10^3/uL (150-450); Red Blood Count 3.96 10^6 /uL (3.70-4.87); Red Cell Distribution Width 13 % (10-15)
[2019-06-17 05:10] LABS: BUN/Creatinine Ratio 34.1 (8-20); Calcium 8.9 mg/dL (8.6-10.3); EGFR African American 182.5 (>60); EGFR Non-African American 150.8 (>60); Magnesium 1.9 mg/dL (1.9-2.7); Potassium 3.1 mmol/L (3.5-5.0)
[2019-06-17] MEDS ORDERED: Potassium Chlor TAB* 20 MEQ TAB.ER PO ONE (06:58)
[2019-06-17] MEDS ORDERED: Potassium Chloride* LIQUID 20 MEQ/15 ML UDC PO ONE (08:13)
--- NOTE | 2019-06-17 08:15 | PN ---
Subjective Date of Service: 06/17/19 Pt examined today at the bedside. She has significant expressive aphasia and is unable to give history. Per nursing staff there has been no concerns over night. ROS-unable to obtain from patient. Review of Systems: Denied CP, SOB, or palpitations. Family History: Unchanged from Admission Social History: Unchanged from Admission Past Medical History: Unchanged from Admission Objective Active Medications: Acetaminophen (Tylenol Tab*) 650 mg PO Q4H PRN PRN Reason: MILD PAIN or TEMP > 100.4 Aspirin (Aspirin Ec Tab*) 81 mg PO DAILY [facility] Last Admin: 06/16/19 08:09 Dose: 81 mg Atorvastatin Calcium (Lipitor*) 80 mg PO BEDTIME [facility] Last Admin: 06/16/19 20:38 Dose: 80 mg Clopidogrel Bisulfate (Plavix Tab*) 75 mg PO DAILY [facility] Last Admin: 06/16/19 11:54 Dose: 75 mg Enoxaparin Sodium (Lovenox(*)) 40 mg SUBCUT Q24H [facility] Last Admin: 06/16/19 20:38 Dose: 40 mg Ceftriaxone Sodium 2 gm/ (Sodium Chloride) 100 mls @ 200 mls/hr IVPB Q24H [facility] Last Admin: 06/16/19 08:09 Dose: 200 mls/hr Ondansetron HCl (Zofran Inj*) 4 mg IV Q4H PRN PRN Reason: NAUSEA/VOMITING Vital Signs 06/16/19 06/16/19 06/16/19 08:48 11:15 12:07 Temperature 98.7 F Pulse Rate 84 77 Respiratory 20 Rate Blood Pressure 166/70 (mmHg) O2 Sat by Pulse 93 Oximetry 06/16/19 06/16/19 06/16/19 15:15 19:49 19:50 Temperature 97.5 F 98 F Pulse Rate 76 82 Respiratory 20 16 18 Rate Blood Pressure 187/83 177/82 (mmHg) O2 Sat by Pulse 95 94 Oximetry 06/16/19 06/17/19 06/17/19 23:31 03:22 07:24 Temperature 97.9 F 99.1 F Pulse Rate 79 72 Respiratory 20 20 18 Rate Blood Pressure 163/81 150/67 (mmHg) O2 Sat by Pulse 92 93 Oximetry Intake and Output Last 24 Hours 06/15/19 06/16/19 06/17/19 06/18/19 06:59 06:59 06:59 06:59 Intake Total 1170 1210 120 Output Total 0 0 0 Balance 1170 1210 120 Weight 152 lb 11.2 oz 152 lb Intake: IV Fluids 1050 910 Oral 120 300 120 Output: Urine 0 0 0 Other: Estimated Void Large Large # Voids 2 Oxygen Devices in Use Now: Nasal Cannula Neurology Exam: General: Well nourished, well developed, and in no acute distress HEENT: Normocephelic/atraumatic, frontal bossing noted, sclera anicteric, mucous membranes moist Neck: Supple Chest: Clear to auscultation bilaterally Cardiovascular: Regular rate and rhythm without murmurs, rubs, gallops Abdomen: Soft, non-tender/non-distended Extremities: No clubbing, cyanosis, or edema Neurological Findings: Awake, alert, and oriented to self and place. Speech: dysarthria noted, expressive aphasia noted and some receptive aphasia, Cranial Nerve: PERRL, EOM intact, VFF, no nystagmus, face symmetric bilaterally slight flattening of the nasolabial fold on the right, facial sensation intact, hearing intact to finger rub bilaterally, palate elevates symmetrically, tongue midline, SCM and Trapezius 5/5 Motor: 5/5 throughout, proximal and distal extremities x4 tone/bulk normal, no drift Sensation: intact to LT bilaterally upper and lower extremities Deep Tendon Reflex: 2+ symmetric in the upper/lower extremities, Babinski - down going Finger to nose intact, no resting tremor noted , difficulty to assess LAUREN given receptive aphasia, Result Diagrams: 06/17/19 04:39 06/17/19 04:39 Microbiology and Other Data: Microbiology 06/14/19 15:30 Aerobic Blood Culture - Preliminary Blood Venous No Growth Day 2 Anaerobic Blood Culture - Preliminary No Growth Day 2 06/14/19 15:51 Aerobic Blood Culture - Preliminary Blood Venous No Growth Day 1 Anaerobic Blood Culture - Preliminary No Growth Day 1 06/14/19 16:10 Urine Culture - Final Urine Diagnostic Imaging: Diagnostics Summary of Radiographic PERSISTENT INTERSTITIAL OPACIFICATION. THE Findings [CXR] DIFFERENTIAL INCLUDES PULMONARY INTERSTITIAL EDEMA VERSUS CHRONIC INTERSTITIAL LUNG DISEASE. Dr. Ness has reviewed this radiology report. Summary of CT Findings [Brain] #. No acute intracranial process evident. #. Stigmata of chronic small vessel ischemic disease. #. Mucosal thickening at the ethmoid and LEFT frontal sinuses without definitive findings of acute sinusitis. Dr. Ness has reviewed this radiology report. Summary of EKG Findings [1758] An EKG at 1758 revealed NSR at 97 BPM, similar to prior EKG, no STEMI. Dr. Ness has reviewed this radiology report. Summary of EKG Findings [1512] An EKG at 1512 revealed NSR at 95 BPM, no STEMI. Dr. Ness has reviewed and interpreted this EKG. 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 Found to be markedly aphasic when more alert, likely with CVA. CVA -MRI showing acute infarct of the medial temporal occipital junction -CTA head neck negative for carotid artery stenosis -Cta shows 90 percent stenosis of the left vertebral artery, and 30 percent of the right vertebral artery -ECHO negative for PFO -No PFO noted -Continue asa and plavix for 30 days than plavix only -Continue Statin -Continue Tele -Needs speech therapy -No evidence of DM -Maintain LDL less than 70 -maintain good blood pressure control -swallowing study recommended -hx of smoking cessation encouraged Pituitary adenoma -will need follow up with Endocrinology HTN - per primary team HLD -statin -ldl less than 70 PNA, COPD -per primary team Elevated trop -per primary team At this point we will sign off. Patient will need outpatient follow up with neurology in 6-8 weeks
[2019-06-17] MEDS: Aspirin EC TAB* 81 MG TAB.EC PO SCH (08:39)
[2019-06-17] MEDS: Clopidogrel TAB* 75 MG PO SCH (08:39)
[2019-06-17] MEDS: cefTRIAXone(*) 2 GM in NS 0.9% 100 ML* 100 ML IVPB SCH (08:39)
[2019-06-17] MEDS ORDERED: amLODIPine TAB* 5 MG PO SCH (12:00)
--- NOTE | 2019-06-17 16:47 | PN ---
Subjective Date of Service: 06/17/19 Interval History: Patient is feeling better today. Patient is more alert and is able to respond more to questions, but often does not seem to understand and often makes non- sensical responses. Patient denies pain, ROS otherwise uninterpretable. Family History: Unchanged from Admission Social History: Unchanged from Admission Past Medical History: Unchanged from Admission Objective Active Medications: Acetaminophen (Tylenol Tab*) 650 mg PO Q4H PRN PRN Reason: MILD PAIN or TEMP > 100.4 Amlodipine Besylate (Norvasc Tab*) [address] [facility] Last Admin: 06/17/19 12:40 Dose: 5 mg Aspirin (Aspirin Ec Tab*) [address] [facility] Last Admin: 06/17/19 08:39 Dose: 81 mg Atorvastatin Calcium (Lipitor*) [address] [facility] Last Admin: 06/16/19 20:38 Dose: 80 mg Clopidogrel Bisulfate (Plavix Tab*) [address] [facility] Last Admin: 06/17/19 08:39 Dose: 75 mg Enoxaparin Sodium (Lovenox(*)) [address] [facility] Last Admin: 06/16/19 20:38 Dose: 40 mg Ceftriaxone Sodium 2 gm/ (Sodium Chloride) 100 mls @ 200 mls/hr IVPB Q24H [facility] Last Admin: 06/17/19 08:39 Dose: 200 mls/hr Ondansetron HCl (Zofran Inj*) 4 mg IV Q4H PRN PRN Reason: NAUSEA/VOMITING Vital Signs - 8 hr 06/17/19 06/17/19 11:15 15:15 Temperature 98.1 F 99.2 F Pulse Rate 72 68 Respiratory 20 20 Rate Blood Pressure 185/68 156/73 (mmHg) O2 Sat by Pulse 95 96 Oximetry Oxygen Devices in Use Now: None Appearance: Patient is a 78yo female who appears stated age, with signs of acromegaly, who is sitting in the bed in [facility]. Eyes: No Scleral Icterus, PERRLA Ears/Nose/Mouth/Throat: NL Teeth, Lips, Gums, Clear Oropharnyx, Mucous Membranes Moist Neck: NL Appearance and Movements; NL JVP, Trachea Midline Respiratory: Symmetrical Chest Expansion and Respiratory Effort, - - Rales in LLL Cardiovascular: NL Sounds; No Murmurs; No JVD, RRR, No Edema Abdominal: NL Sounds; No Tenderness; No Distention, No Hepatosplenomegaly Lymphatic: No Cervical Adenopathy Extremities: No Edema, No Clubbing, Cyanosis Skin: No Rash or Ulcers, No Nodules or Sclerosis Neurological: NL Gait, - - Right sided neglect, marked expressive and receptive aphasia. Improved from previous exam. Result Diagrams: 06/17/19 04:39 06/17/19 04:39 Microbiology and Other Data: Microbiology 06/14/19 15:30 Aerobic Blood Culture - Preliminary Blood Venous No Growth Day 2 Anaerobic Blood Culture - Preliminary No Growth Day 2 06/14/19 15:51 Aerobic Blood Culture - Preliminary Blood Venous No Growth Day 1 Anaerobic Blood Culture - Preliminary No Growth Day 1 06/14/19 16:10 Urine Culture - Final Urine Diagnostic Imaging: Diagnostics Summary of Radiographic PERSISTENT INTERSTITIAL OPACIFICATION. THE Findings [CXR] DIFFERENTIAL INCLUDES PULMONARY INTERSTITIAL EDEMA VERSUS CHRONIC INTERSTITIAL LUNG DISEASE. Dr. Ness has reviewed this radiology report. Summary of CT Findings [Brain] #. No acute intracranial process evident. #. Stigmata of chronic small vessel ischemic disease. #. Mucosal thickening at the ethmoid and LEFT frontal sinuses without definitive findings of acute sinusitis. Dr. Ness has reviewed this radiology report. Summary of EKG Findings [1758] An EKG at 1758 revealed NSR at 97 BPM, similar to prior EKG, no STEMI. Dr. Ness has reviewed this radiology report. Summary of EKG Findings [1512] An EKG at 1512 revealed NSR at 95 BPM, no STEMI. Dr. Ness has reviewed and interpreted this EKG. 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 Found to be markedly aphasic when more alert, likely with CVA. - Patient Problems (1) Encephalopathy Current Visit: Yes Status: Acute Code(s): G93.40 - ENCEPHALOPATHY, UNSPECIFIED SNOMED Code(s): 67727582 Comment: - Acute metabolic encephalopathy suspected in setting of sepsis - Improves - Sepsis with high fevers and unknown source - patient's daughter has been sick but unclear if there was contact - Possible Sinus disease on CT - Abnormal Lung exam, CT chest shows possible Atelectasis vs Infiltrate. Continue Ceftriaxone, given improvement, will not add on atypical coverage. - Low TSH which is chronic, TFTs non-diagnostic, ? Central hypothyroidism with Pituitary disease. Unlikely apathetic hypothyroidism - MRI brain W/WO shows stroke, no other abnormalities and no pituitary issues. (2) CVA (cerebral vascular accident) Current Visit: Yes Status: Acute Code(s): I63.9 - CEREBRAL INFARCTION, UNSPECIFIED SNOMED Code(s): 912337980 Comment: - With marked aphasia and possible right sided facial droop. - History of TIA with Aphasia in 10/2018 - No LVO or CT abnormality on CTA - Appreciate Neuro Input - LDL still not at goal, increase Statin to 80mg daily - Confirmed by MRI - No PFO or Afib, No indication for AC - DAPT transitioning to Plavix mono-therapy. 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 (3) COPD (chronic obstructive pulmonary disease) Current Visit: Yes Status: Acute Code(s): J44.9 - CHRONIC OBSTRUCTIVE PULMONARY DISEASE, UNSPECIFIED SNOMED Code(s): 52668992 Comment: - Reported 2L O2 at night - Resume controller inhalers when able. (4) Hypertension Current Visit: Yes Status: Acute Code(s): I10 - ESSENTIAL (PRIMARY) HYPERTENSION SNOMED Code(s): 89853310 Comment: - On no medications at home - Will not treat to goal at this time due to CVA with ? Stuttering course - Start Amlodipine to treat to goal. (5) Elevated troponin Current Visit: Yes Status: Acute Code(s): R79.89 - OTHER SPECIFIED ABNORMAL FINDINGS OF BLOOD CHEMISTRY SNOMED Code(s): 600043785 Comment: - No evidence of Type 1 OK - Continue Primary prevention of OK with Statin, Aspirin, Plavix (6) Pituitary adenoma Current Visit: Yes Status: Acute Code(s): D35.2 - BENIGN NEOPLASM OF PITUITARY GLAND SNOMED Code(s): 069511179 Comment: - With equivocal resection, Differing reports available - Will request records - With Clinical Acromegaly - LH and FSH WNL - TSH low ? central hypothyroidism - MRI brain shows no pituitary lesion. (7) DVT prophylaxis Current Visit: Yes Status: Acute Code(s): Z29.9 - ENCOUNTER FOR PROPHYLACTIC MEASURES, UNSPECIFIED SNOMED Code(s): 856008092 Comment: - Lovenox Status and Disposition: Inpatient for evaluation of encephalopathy and CVA, may need CVA
[2019-06-17] MEDS: Enoxaparin(*) 40 MG/0.4 ML SYR SUBCUT SCH (20:29)
[2019-06-17] MEDS: Atorvastatin* 80 MG TAB PO SCH (20:31)
[2019-06-18 07:05] LABS: BUN/Creatinine Ratio 26.8 (8-20); Calcium 9.4 mg/dL (8.6-10.3); EGFR African American 127.4 (>60); EGFR Non-African American 105.3 (>60); Potassium 3.3 mmol/L (3.5-5.0)
[2019-06-18] MEDS ORDERED: Potassium Chloride* LIQUID 20 MEQ/15 ML UDC PO ONE (07:08)
[2019-06-18] MEDS: Clopidogrel TAB* 75 MG PO SCH (08:25)
[2019-06-18] MEDS: amLODIPine TAB* 5 MG PO SCH (08:25)
[2019-06-18] MEDS: Aspirin EC TAB* 81 MG TAB.EC PO SCH (08:25)
[2019-06-18] MEDS: cefTRIAXone(*) 1 GM in NS 0.9% 100 ML* 100 ML IVPB SCH (08:35)
--- NOTE | 2019-06-18 12:15 | PN ---
Subjective Date of Service: 06/18/19 Interval History: Patient is remarkably better than yesterday. Patient is able to articulate herself very well. Patient denies CP, SOB, F/C, N/V, abdominal pain, diarrhea, or other pain. Patient occasionally still has trouble finding words. Family History: Unchanged from Admission Social History: Unchanged from Admission Past Medical History: Unchanged from Admission Objective Active Medications: Acetaminophen (Tylenol Tab*) 650 mg PO Q4H PRN PRN Reason: MILD PAIN or TEMP > 100.4 Amlodipine Besylate (Norvasc Tab*) 10 mg PO DAILY [facility] Last Admin: 06/18/19 08:25 Dose: 10 mg Aspirin (Aspirin Ec Tab*) 81 mg PO DAILY [facility] Last Admin: 06/18/19 08:25 Dose: 81 mg Atorvastatin Calcium (Lipitor*) 80 mg PO BEDTIME [facility] Last Admin: 06/17/19 20:31 Dose: 80 mg Clopidogrel Bisulfate (Plavix Tab*) 75 mg PO DAILY [facility] Last Admin: 06/18/19 08:25 Dose: 75 mg Enoxaparin Sodium (Lovenox(*)) 40 mg SUBCUT Q24H [facility] Last Admin: 06/17/19 20:29 Dose: 40 mg Ceftriaxone Sodium 1 gm/ (Sodium Chloride) 100 mls @ 200 mls/hr IVPB Q24H [facility] Last Admin: 06/18/19 08:35 Dose: 200 mls/hr Ondansetron HCl (Zofran Inj*) 4 mg IV Q4H PRN PRN Reason: NAUSEA/VOMITING Vital Signs - 8 hr 06/18/19 07:38 Temperature 98.2 F Pulse Rate 66 Respiratory 20 Rate Blood Pressure 164/71 (mmHg) O2 Sat by Pulse 94 Oximetry Oxygen Devices in Use Now: None Appearance: Patient is a 78yo female with signs of acromegaly, sitting in the bed in [place]. Eyes: No Scleral Icterus, PERRLA Ears/Nose/Mouth/Throat: NL Teeth, Lips, Gums, Clear Oropharnyx, Mucous Membranes Moist Neck: NL Appearance and Movements; NL JVP, Trachea Midline Respiratory: Symmetrical Chest Expansion and Respiratory Effort, Clear to Auscultation Cardiovascular: NL Sounds; No Murmurs; No JVD, RRR, No Edema Abdominal: NL Sounds; No Tenderness; No Distention, No Hepatosplenomegaly Lymphatic: No Cervical Adenopathy Extremities: No Edema, No Clubbing, Cyanosis Skin: No Rash or Ulcers, No Nodules or Sclerosis Neurological: NL Sensation, NL Muscle Strength and Tone, - - CN II-XII intact. Mild expressive aphasia. Result Diagrams: 06/17/19 04:39 06/18/19 06:23 Microbiology and Other Data: Microbiology 06/14/19 15:30 Aerobic Blood Culture - Preliminary Blood Venous No Growth Day 2 Anaerobic Blood Culture - Preliminary No Growth Day 2 06/14/19 15:51 Aerobic Blood Culture - Preliminary Blood Venous No Growth Day 1 Anaerobic Blood Culture - Preliminary No Growth Day 1 06/14/19 16:10 Urine Culture - Final Urine Diagnostic Imaging: Diagnostics Summary of Radiographic PERSISTENT INTERSTITIAL OPACIFICATION. THE Findings [CXR] DIFFERENTIAL INCLUDES PULMONARY INTERSTITIAL EDEMA VERSUS CHRONIC INTERSTITIAL LUNG DISEASE. Dr. Ness has reviewed this radiology report. Summary of CT Findings [Brain] #. No acute intracranial process evident. #. Stigmata of chronic small vessel ischemic disease. #. Mucosal thickening at the ethmoid and LEFT frontal sinuses without definitive findings of acute sinusitis. Dr. Ness has reviewed this radiology report. Summary of EKG Findings [1758] An EKG at 1758 revealed NSR at 97 BPM, similar to prior EKG, no STEMI. Dr. Ness has reviewed this radiology report. Summary of EKG Findings [1512] An EKG at 1512 revealed NSR at 95 BPM, no STEMI. Dr. Ness has reviewed and interpreted this EKG. 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 Found to be markedly aphasic when more alert, likely with CVA. - Patient Problems (1) Encephalopathy Current Visit: Yes Status: Acute Code(s): G93.40 - ENCEPHALOPATHY, UNSPECIFIED SNOMED Code(s): 18681964 Comment: - Acute metabolic encephalopathy suspected in setting of sepsis - Improved - Sepsis with high fevers and unknown source - patient's daughter has been sick but unclear if there was contact - Possible Sinus disease on CT - Abnormal Lung exam, CT chest shows possible Atelectasis vs Infiltrate. Continue Ceftriaxone, given improvement, will not add on atypical coverage. - Low TSH which is chronic, TFTs non-diagnostic, ? Central hypothyroidism with Pituitary disease. Unlikely apathetic hypothyroidism - MRI brain W/WO shows stroke, no other abnormalities and no pituitary issues. (2) CVA (cerebral vascular accident) Current Visit: Yes Status: Acute Code(s): I63.9 - CEREBRAL INFARCTION, UNSPECIFIED SNOMED Code(s): 342020377 Comment: - With marked aphasia and possible right sided facial droop. - History of TIA with Aphasia in 10/2018 - No LVO or CT abnormality on CTA - Appreciate Neuro Input - LDL still not at goal, increase Statin to 80mg daily - Confirmed by MRI - No PFO or Afib, No indication for AC - DAPT transitioning to Plavix mono-therapy. 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 - Treat BP to goal. (3) COPD (chronic obstructive pulmonary disease) Current Visit: Yes Status: Acute Code(s): J44.9 - CHRONIC OBSTRUCTIVE PULMONARY DISEASE, UNSPECIFIED SNOMED Code(s): 85728860 Comment: - Not in exacerbation. (4) Hypertension Current Visit: Yes Status: Acute Code(s): I10 - ESSENTIAL (PRIMARY) HYPERTENSION SNOMED Code(s): 83369739 Comment: - On no medications at home - Will not treat to goal at this time due to CVA with ? Stuttering course - Start Amlodipine, increase today. (5) Elevated troponin Current Visit: Yes Status: Acute Code(s): R79.89 - OTHER SPECIFIED ABNORMAL FINDINGS OF BLOOD CHEMISTRY SNOMED Code(s): 977373965 Comment: - No evidence of Type 1 [place] - Continue Primary prevention of [place] with Statin, Aspirin, Plavix (6) Pituitary adenoma Current Visit: Yes Status: Acute Code(s): D35.2 - BENIGN NEOPLASM OF PITUITARY GLAND SNOMED Code(s): 909180919 Comment: - With equivocal resection, Differing reports available, likely occurred in 1993 -1995 - With Clinical Acromegaly - LH and FSH WNL - TSH low ? central hypothyroidism - MRI brain shows no pituitary lesion. - Follow up outpatient Endocrinology. (7) DVT prophylaxis Current Visit: Yes Status: Acute Code(s): Z29.9 - ENCOUNTER FOR PROPHYLACTIC MEASURES, UNSPECIFIED SNOMED Code(s): 130894203 Comment: - Lovenox Status and Disposition: Inpatient for evaluation of encephalopathy and CVA, hopeful D/C to home with continued improvement.
[2019-06-18] MEDS: Enoxaparin(*) 40 MG/0.4 ML SYR SUBCUT SCH (21:15)
[2019-06-18] MEDS: Atorvastatin* 80 MG TAB PO SCH (21:15)
[2019-06-19] MEDS: Clopidogrel TAB* 75 MG PO SCH (10:27)
[2019-06-19] MEDS: Aspirin EC TAB* 81 MG TAB.EC PO SCH (10:27)
[2019-06-19] MEDS: cefTRIAXone(*) 1 GM in NS 0.9% 100 ML* 100 ML IVPB SCH (10:28)
[2019-06-19] MEDS: amLODIPine TAB* 5 MG PO SCH (10:28)
--- NOTE | 2019-06-19 13:51 | PN ---
Subjective Date of Service: 06/19/19 Interval History: Patient is feeling well today, patient has only minor deficits in speech. Patient denies F/C, N/V, abdominal pain, diarrhea, CP, SOB. Family History: Unchanged from Admission Social History: Unchanged from Admission Past Medical History: Unchanged from Admission Objective Active Medications: Acetaminophen (Tylenol Tab*) 650 mg PO Q4H PRN PRN Reason: MILD PAIN or TEMP > 100.4 Amlodipine Besylate (Norvasc Tab*) 10 mg PO DAILY [facility] Last Admin: 06/19/19 10:28 Dose: 10 mg Aspirin (Aspirin Ec Tab*) 81 mg PO DAILY [facility] Last Admin: 06/19/19 10:27 Dose: 81 mg Atorvastatin Calcium (Lipitor*) 80 mg PO BEDTIME [facility] Last Admin: 06/18/19 21:15 Dose: 80 mg Clopidogrel Bisulfate (Plavix Tab*) 75 mg PO DAILY [facility] Last Admin: 06/19/19 10:27 Dose: 75 mg Enoxaparin Sodium (Lovenox(*)) 40 mg SUBCUT Q24H [facility] Last Admin: 06/18/19 21:15 Dose: 40 mg Ceftriaxone Sodium 1 gm/ (Sodium Chloride) 100 mls @ 200 mls/hr IVPB Q24H [facility] Last Admin: 06/19/19 10:28 Dose: 200 mls/hr Ondansetron HCl (Zofran Inj*) 4 mg IV Q4H PRN PRN Reason: NAUSEA/VOMITING Vital Signs - 8 hr 06/19/19 07:48 Temperature 98.2 F Pulse Rate 80 Respiratory 16 Rate Blood Pressure 161/73 (mmHg) O2 Sat by Pulse 95 Oximetry Oxygen Devices in Use Now: None Appearance: Patient is a 77yo female who appears stated age and is sitting in the bed in [facility]. Eyes: No Scleral Icterus, PERRLA Ears/Nose/Mouth/Throat: NL Teeth, Lips, Gums, Clear Oropharnyx, Mucous Membranes Moist Neck: NL Appearance and Movements; NL JVP, Trachea Midline Respiratory: Symmetrical Chest Expansion and Respiratory Effort, Clear to Auscultation Cardiovascular: NL Sounds; No Murmurs; No JVD, RRR, No Edema Abdominal: NL Sounds; No Tenderness; No Distention, No Hepatosplenomegaly Lymphatic: No Cervical Adenopathy Extremities: No Edema, No Clubbing, Cyanosis Skin: No Rash or Ulcers, No Nodules or Sclerosis Neurological: Alert and Oriented x 3, NL Sensation, NL Muscle Strength and Tone , - - CN II-XII intact except for right sided neglect which is unchanged. Slight word finding difficulty. Result Diagrams: 06/17/19 04:39 06/18/19 06:23 Microbiology and Other Data: Microbiology 06/14/19 15:30 Aerobic Blood Culture - Preliminary Blood Venous No Growth Day 2 Anaerobic Blood Culture - Preliminary No Growth Day 2 06/14/19 15:51 Aerobic Blood Culture - Preliminary Blood Venous No Growth Day 1 Anaerobic Blood Culture - Preliminary No Growth Day 1 06/14/19 16:10 Urine Culture - Final Urine Diagnostic Imaging: Diagnostics Summary of Radiographic PERSISTENT INTERSTITIAL OPACIFICATION. THE Findings [CXR] DIFFERENTIAL INCLUDES PULMONARY INTERSTITIAL EDEMA VERSUS CHRONIC INTERSTITIAL LUNG DISEASE. Dr. Ness has reviewed this radiology report. Summary of CT Findings [Brain] #. No acute intracranial process evident. #. Stigmata of chronic small vessel ischemic disease. #. Mucosal thickening at the ethmoid and LEFT frontal sinuses without definitive findings of acute sinusitis. Dr. Ness has reviewed this radiology report. Summary of EKG Findings [1758] An EKG at 1758 revealed NSR at 97 BPM, similar to prior EKG, no STEMI. Dr. Ness has reviewed this radiology report. Summary of EKG Findings [1512] An EKG at 1512 revealed NSR at 95 BPM, no STEMI. Dr. Ness has reviewed and interpreted this EKG. 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 Found to be markedly aphasic when more alert, likely with CVA. - Patient Problems (1) Encephalopathy Current Visit: Yes Status: Acute Code(s): G93.40 - ENCEPHALOPATHY, UNSPECIFIED SNOMED Code(s): 24539233 Comment: - Acute metabolic encephalopathy suspected in setting of sepsis - Improved - Sepsis with high fevers and unknown source - patient's daughter has been sick but unclear if there was contact - Possible Sinus disease on CT - Abnormal Lung exam, CT chest shows possible Atelectasis vs Infiltrate. Continue Ceftriaxone (06/14-06/20, given improvement, will not add on atypical coverage. - MRI brain W/WO shows stroke, no other abnormalities and no pituitary issues. (2) CVA (cerebral vascular accident) Current Visit: Yes Status: Acute Code(s): I63.9 - CEREBRAL INFARCTION, UNSPECIFIED SNOMED Code(s): 043642320 Comment: - With marked aphasia and possible right sided facial droop. - History of TIA with Aphasia in 10/2018 - No LVO or CT abnormality on CTA - Appreciate Neuro Input - LDL still not at goal, increase Statin to 80mg daily - Confirmed by MRI - No PFO or Afib, No indication for AC - DAPT transitioning to Plavix mono-therapy. 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 - Treat BP to goal. (3) COPD (chronic obstructive pulmonary disease) Current Visit: Yes Status: Acute Code(s): J44.9 - CHRONIC OBSTRUCTIVE PULMONARY DISEASE, UNSPECIFIED SNOMED Code(s): 70293478 Comment: - Not in exacerbation. (4) Hypertension Current Visit: Yes Status: Acute Code(s): I10 - ESSENTIAL (PRIMARY) HYPERTENSION SNOMED Code(s): 33197866 Comment: - On no medications at home - Treat to goal of systolic <140 - Amlodipine 10mg daily - Lisinopril 5mg daily start. (5) Elevated troponin Current Visit: Yes Status: Acute Code(s): R79.89 - OTHER SPECIFIED ABNORMAL FINDINGS OF BLOOD CHEMISTRY SNOMED Code(s): 903003471 Comment: - No evidence of Type 1 [place] - Continue Primary prevention of [place] with Statin, Aspirin, Plavix - Likely Demand. (6) Pituitary adenoma Current Visit: Yes Status: Acute Code(s): D35.2 - BENIGN NEOPLASM OF PITUITARY GLAND SNOMED Code(s): 913713907 Comment: - With equivocal resection, Differing reports available, likely occurred in 1993 -1995 - With Clinical Acromegaly - LH and FSH WNL - TSH low ? central hypothyroidism - MRI brain shows no pituitary lesion. - Follow up outpatient Endocrinology. (7) DVT prophylaxis Current Visit: Yes Status: Acute Code(s): Z29.9 - ENCOUNTER FOR PROPHYLACTIC MEASURES, UNSPECIFIED SNOMED Code(s): 475915673 Comment: - Lovenox Status and Disposition: Inpatient for evaluation of encephalopathy and CVA, hopeful D/C to home or [facility] with continued improvement.
[2019-06-19] MEDS: Lisinopril TAB* 5 MG PO SCH (14:55)
[2019-06-19] MEDS: Atorvastatin* 80 MG TAB PO SCH (20:37)
[2019-06-19] MEDS: Enoxaparin(*) 40 MG/0.4 ML SYR SUBCUT SCH (20:37)
[2019-06-20 08:06] LABS: BUN/Creatinine Ratio 33.3 (8-20); Calcium 8.8 mg/dL (8.6-10.3); EGFR African American 177.5 (>60); EGFR Non-African American 146.7 (>60); Magnesium 1.7 mg/dL (1.9-2.7); Potassium 3.8 mmol/L (3.5-5.0)
[2019-06-20] MEDS ORDERED: Magnesium Sulfate 2 GM IV* 2 GM/50 ML BAG IVPB ONE (08:09)
[2019-06-20] MEDS: amLODIPine TAB* 5 MG PO SCH (08:46)
[2019-06-20] MEDS: Aspirin EC TAB* 81 MG TAB.EC PO SCH (08:46)
[2019-06-20] MEDS: Clopidogrel TAB* 75 MG PO SCH (08:46)
[2019-06-20] MEDS: Lisinopril TAB* 5 MG PO SCH (08:47)
--- NOTE | 2019-06-20 09:42 | PN ---
Subjective Date of Service: 06/20/19 Interval History: Patient is feeling well today. Patient notes no problems with speech. Patient reports no issues with ambulation. Patient denies F/C, N/V, abdominal pain, diarrhea, CP, SOB, weakness, difficulty swallowing, or other pain. Family History: Unchanged from Admission Social History: Unchanged from Admission Past Medical History: Unchanged from Admission Objective Active Medications: Acetaminophen (Tylenol Tab*) 650 mg PO Q4H PRN PRN Reason: MILD PAIN or TEMP > 100.4 Amlodipine Besylate (Norvasc Tab*) 10 mg PO DAILY [facility] Last Admin: 06/20/19 08:46 Dose: 10 mg Aspirin (Aspirin Ec Tab*) 81 mg PO DAILY [facility] Last Admin: 06/20/19 08:46 Dose: 81 mg Atorvastatin Calcium (Lipitor*) 80 mg PO BEDTIME [facility] Last Admin: 06/19/19 20:37 Dose: 80 mg Clopidogrel Bisulfate (Plavix Tab*) 75 mg PO DAILY [facility] Last Admin: 06/20/19 08:46 Dose: 75 mg Enoxaparin Sodium (Lovenox(*)) 40 mg SUBCUT Q24H [facility] Last Admin: 06/19/19 20:37 Dose: 40 mg Ceftriaxone Sodium 1 gm/ (Sodium Chloride) 100 mls @ 200 mls/hr IVPB Q24H [facility] Stop: 06/20/19 10:00 Last Admin: 06/19/19 10:28 Dose: 200 mls/hr Lisinopril (Prinivil Tab*) 5 mg PO DAILY [facility] Last Admin: 06/20/19 08:47 Dose: 5 mg Ondansetron HCl (Zofran Inj*) 4 mg IV Q4H PRN PRN Reason: NAUSEA/VOMITING Vital Signs - 8 hr 06/20/19 06/20/19 06/20/19 03:25 07:15 07:57 Temperature 97.5 F 97.7 F Pulse Rate 71 73 Respiratory 18 20 20 Rate Blood Pressure 119/56 143/61 (mmHg) O2 Sat by Pulse 96 95 Oximetry Oxygen Devices in Use Now: None Appearance: Patient is a 78yo female who appears stated age and is sitting in the bed in [facility]. Eyes: No Scleral Icterus, PERRLA Ears/Nose/Mouth/Throat: NL Teeth, Lips, Gums, Clear Oropharnyx, Mucous Membranes Moist Neck: NL Appearance and Movements; NL JVP, Trachea Midline Respiratory: Symmetrical Chest Expansion and Respiratory Effort, Clear to Auscultation Cardiovascular: NL Sounds; No Murmurs; No JVD, RRR, No Edema Abdominal: NL Sounds; No Tenderness; No Distention, No Hepatosplenomegaly Lymphatic: No Cervical Adenopathy Extremities: No Edema, No Clubbing, Cyanosis Skin: No Rash or Ulcers, No Nodules or Sclerosis Neurological: Alert and Oriented x 3, NL Sensation, NL Muscle Strength and Tone , - - Right sided neglect. Minor issues with word finding and possibly comprehension. Result Diagrams: 06/17/19 04:39 06/20/19 07:18 Microbiology and Other Data: Microbiology 06/14/19 15:30 Aerobic Blood Culture - Preliminary Blood Venous No Growth Day 2 Anaerobic Blood Culture - Preliminary No Growth Day 2 06/14/19 15:51 Aerobic Blood Culture - Preliminary Blood Venous No Growth Day 1 Anaerobic Blood Culture - Preliminary No Growth Day 1 06/14/19 16:10 Urine Culture - Final Urine Diagnostic Imaging: Diagnostics Summary of Radiographic PERSISTENT INTERSTITIAL OPACIFICATION. THE Findings [CXR] DIFFERENTIAL INCLUDES PULMONARY INTERSTITIAL EDEMA VERSUS CHRONIC INTERSTITIAL LUNG DISEASE. Dr. Ness has reviewed this radiology report. Summary of CT Findings [Brain] #. No acute intracranial process evident. #. Stigmata of chronic small vessel ischemic disease. #. Mucosal thickening at the ethmoid and LEFT frontal sinuses without definitive findings of acute sinusitis. Dr. Ness has reviewed this radiology report. Summary of EKG Findings [1758] An EKG at 1758 revealed NSR at 97 BPM, similar to prior EKG, no STEMI. Dr. Ness has reviewed this radiology report. Summary of EKG Findings [1512] An EKG at 1512 revealed NSR at 95 BPM, no STEMI. Dr. Ness has reviewed and interpreted this EKG. 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 Found to be markedly aphasic when more alert, likely with CVA. - Patient Problems (1) Encephalopathy Current Visit: Yes Status: Acute Code(s): G93.40 - ENCEPHALOPATHY, UNSPECIFIED SNOMED Code(s): 27454025 Comment: - Acute metabolic encephalopathy suspected in setting of sepsis - Improved - Possible Sinus disease on CT - Abnormal Lung exam, CT chest shows possible Atelectasis vs Infiltrate. Got 7 days Ceftriaxone (06/14-06/20)age. - MRI brain W/WO shows stroke, no other abnormalities and no pituitary issues. (2) CVA (cerebral vascular accident) Current Visit: Yes Status: Acute Code(s): I63.9 - CEREBRAL INFARCTION, UNSPECIFIED SNOMED Code(s): 333110200 Comment: - With marked aphasia and possible right sided facial droop. - History of TIA with Aphasia in 10/2018 - No LVO or CT abnormality on CTA - Appreciate Neuro Input - LDL still not at goal, increase Statin to 80mg daily - Confirmed by MRI - No PFO or Afib, No indication for AC - DAPT transitioning to Plavix mono-therapy. 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 - Marked improvement, continue therapy. - Treat BP to goal. (3) COPD (chronic obstructive pulmonary disease) Current Visit: Yes Status: Acute Code(s): J44.9 - CHRONIC OBSTRUCTIVE PULMONARY DISEASE, UNSPECIFIED SNOMED Code(s): 34766538 Comment: - Not in exacerbation. (4) Hypertension Current Visit: Yes Status: Acute Code(s): I10 - ESSENTIAL (PRIMARY) HYPERTENSION SNOMED Code(s): 07434975 Comment: - On no medications at home - Treat to goal of systolic <140 - Amlodipine 10mg daily - Lisinopril 5mg daily start. (5) Elevated troponin Current Visit: Yes Status: Acute Code(s): R79.89 - OTHER SPECIFIED ABNORMAL FINDINGS OF BLOOD CHEMISTRY SNOMED Code(s): 985926052 Comment: - No evidence of Type 1 [place] - Continue Primary prevention of [place] with Statin, Aspirin, Plavix - Likely Demand. (6) Pituitary adenoma Current Visit: Yes Status: Acute Code(s): D35.2 - BENIGN NEOPLASM OF PITUITARY GLAND SNOMED Code(s): 676899914 Comment: - With equivocal resection, Differing reports available, likely occurred in 1993 -1995 - With Clinical Acromegaly - LH and FSH WNL - TSH low ? central hypothyroidism - MRI brain shows no pituitary lesion. - Follow up outpatient Endocrinology. (7) DVT prophylaxis Current Visit: Yes Status: Acute Code(s): Z29.9 - ENCOUNTER FOR PROPHYLACTIC MEASURES, UNSPECIFIED SNOMED Code(s): 206959598 Comment: - Lovenox Status and Disposition: Inpatient for evaluation of encephalopathy and CVA, hopeful D/C to home or [facility] with continued improvement.
[2019-06-20] MEDS: cefTRIAXone(*) 1 GM in NS 0.9% 100 ML* 100 ML IVPB SCH (10:13)
[2019-06-20] MEDS: Enoxaparin(*) 40 MG/0.4 ML SYR SUBCUT SCH (20:55)
[2019-06-20] MEDS: Atorvastatin* 80 MG TAB PO SCH (20:55)
[2019-06-21] MEDS: Aspirin EC TAB* 81 MG TAB.EC PO SCH (07:38)
[2019-06-21] MEDS: Clopidogrel TAB* 75 MG PO SCH (07:38)
[2019-06-21] MEDS: amLODIPine TAB* 5 MG PO SCH (07:38)
[2019-06-21] MEDS: Lisinopril TAB* 5 MG PO SCH (07:38)
[2019-06-21 11:45] VITALS: BP 138/44
--- NOTE | 2019-06-21 15:16 | DS ---
CC: Dr. Jas Mancia; Dr. Agus Prakash, Neurology * DISCHARGE SUMMARY: DATE OF ADMISSION: 06/14/19 DATE OF DISCHARGE: 06/21/19 PRIMARY CARE PROVIDER: Dr. Jas Mancia. MY ATTENDING WHILE IN THE HOSPITAL: Dr. Carmelo Espinoza.* (DICTATED BY OCTAVIO CAIN) PRIMARY DISCHARGE DIAGNOSES: 1. 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 2. Receptive and expressive aphasia. 3. Right-sided homonymous hemianopia with neglect. 4. Encephalopathy, resolved. 5. Likely community-acquired pneumonia, resolved. SECONDARY DISCHARGE DIAGNOSES: 1. History of small cell lung cancer, currently in remission. 2. Chronic obstructive pulmonary disease. 3. Hypertension. 4. Hyperlipidemia. 5. Pituitary adenoma, status post resection. 6. Acromegaly. 7. Sleep apnea, 2 L oxygen wear at night. STUDIES DONE WHILE IN THE HOSPITAL: Chest x-ray from 06/14/19 read as persistent interstitial opacification. Differential includes pulmonary interstitial edema versus chronic interstitial lung disease. Brain CT read as no acute intracranial process evident, stigmata of chronic small vessel ischemic disease, mucosal thickening at the ethmoid and left frontal sinuses without definitive findings of acute sinusitis. Chest CT from 06/15/19 read as left upper lobe pulmonary nodule, unchanged; emphysema; mild dependent bilateral lower lobe infiltrates suggestive of atelectasis, less likely pneumonia; mild to moderate chronic compression fracture of the dorsal vertebra, unchanged. Brain MRI read as punctate focus of restricted diffusion in the medial left temporal occipital region concerning for small acute infarct. No evidence of pituitary micro or macroadenoma. Partial opacification of the frontal and ethmoid sinuses. No other findings. Neck angiogram read as negative for significant carotid artery stenosis by NASCET criteria; ostial stenosis of bilateral vertebral artery origins, estimated 30% on the right and 90% on the left, significant progression on the left compared to 2019 exam. The vertebral artery are codominant and both contribute to the basilar artery. Head angiogram negative for hemodynamically significant intracranial stenosis or large vessel occlusion. Transthoracic echocardiogram read as negative for bubble study, wall thickness mild to moderately increased with prominent septal knuckle. Systolic function is mildly reduced. Right ventricular systolic function is normal. Ventricular septum appears dyssynchronous. Atrial septum: Bubble study was negative. Mitral valve mildly calcified, moderately thickened, trace amount of regurgitation. Tricuspid valve trace regurgitation. When compared to prior study, inferior hypokinesis and septal dyssynchrony are new. Ejection fraction is 60% to 65%. HOSPITAL COURSE: This is a brief summary of the patient's presentation. For more details, please see the history and physical from Caro Ramos NP, on . In brief, the patient is a 78-year-old female with past medical history significant for the above, who was last known well on 06/13/19 when [place] with her daughters and she was found the next day very confused, hard to wake up, would not speak, acting inappropriately , and came into the emergency department. The patient did not seem to understand anything, would not make eye contact. The patient had a negative CT of the head. The patient had elevated temperatures, highest being 100.9, on admission with tachycardia concerning for infection. The patient was started on ceftriaxone empirically. The patient had a CT concerning for either sinusitis or pneumonia. The patient lacked significant respiratory symptoms, but the patient had some improvement on antibiotics. However, as the patient improved, it became clear that the patient had significant expressive and receptive aphasia. At that time, the patient was evaluated by a neurologist and acute CVA was thought likely. The patient was started on aspirin and Plavix and had her Lipitor increased for an LDL of 100 with a goal less than 70. The patient's blood pressure was initially elevated and this was treated to goal. The patient had an MRI as above. The patient was seen in consultation by Speech, Physical and Occupational Therapy. The patient's signs of sepsis resolved and her speech, gait, and ability to care for herself improved greatly while she was inpatient; however, she was still deemed to have rehab needs and require assistance from. The patient has been continuing to improve for several days awaiting for a rehab bed and is stable and amenable for discharge to [facility] on 06/21[facility]19. PHYSICAL EXAMINATION ON THE DAY OF DISCHARGE: General: The patient is a 78- year- old female who appears stated age and sitting comfortably in the bed, in no acute distress. Vital Signs: At the time of evaluation, temperature 98.6, pulse 74, respiratory rate 18, oxygen saturation 96% on room air, blood pressure 138/44. HEENT: Head: Normocephalic, atraumatic. Sclerae anicteric. No conjunctival injection. Nasal mucosa moist. Oral mucosa moist. No pharyngeal erythema, discharge, or exudate. Neck: Supple, nontender. No lymphadenopathy. No carotid bruit auscultated. No JVD. Cardiac: Regular rate and rhythm. No clicks, murmurs, gallops, or rubs. Pulses 2+ in bilateral dorsalis pedis, posterior tibialis, and radial areas. Respiratory: Clear to auscultation bilaterally. No wheezes, rales, or rhonchi. Good air exchange bilaterally. Abdomen: Soft, nontender, nondistended. Bowel sounds present and normoactive in all 4 quadrants. No hepatosplenomegaly. No abdominal bruits auscultated. No hepatojugular reflux. Genitourinary: No suprapubic or CVA tenderness. Skin: Clean, dry, and intact. No rash. Neuro: Evidence of homonymous hemianopia affecting the right side of the vision. Slight occasional word finding difficulty, much improved from previous exam. Psychiatric: Pleasant and cooperative. DISCHARGE PLAN BY PROBLEMS: 1. Acute CVA. The patient had an acute CVA whose initial presentation was masked by a presumed metabolic septic encephalopathy likely with either pneumonia or sinus disease. The patient improved on 7 days of ceftriaxone. The patient's symptoms of stroke appeared to be right-sided neglect making ambulation and self-care difficult as well as significant expressive and receptive aphasia which has improved significantly. The patient has been started on aspirin and Plavix and her statin has been increased. The patient will be continued on dual-antiplatelet therapy for 30 days and then transitioned to Plavix monotherapy. The patient was previously on aspirin monotherapy. The patient's blood pressure is under good control at this time on amlodipine and lisinopril which are both new medications. 2. Sepsis, likely related to pneumonia or sinus disease. The patient has been adequately treated with 7 days of ceftriaxone therapy and has improved greatly. The patient has no recurrent fevers, tachycardia, or encephalopathy. 3. Elevated troponin, new dyssynchrony on echo with borderline EF. The patient 's heart dysfunction may be related to right bundle-branch block which is evident on electrocardiogram; however, this may indicate a previous missed GA that the patient is on aspirin and Plavix and a statin for her stroke. The patient has also had her blood pressure controlled. The patient at some point should be considered to have a stress test to further evaluate these findings when the patient is further out from her acute CVA. 4. History of small cell lung cancer. There are no signs of recurrence or brain metastasis. 5. Hypertension. Management as above. The patient's hypertension is currently well controlled. 6. Pituitary disease. The patient has decreased TSH, which she has had previously. 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 The patient should follow up outpatient with an custody assistant for this and her acromegaly. She is not currently evidently symptomatic from hypo or hyperthyroidism. 7. Sleep apnea. Continue 2 L of oxygen at night. Consider sleep study and positive pressure ventilation at night. DISPOSITION: Jason Up. CONDITION: Stable. TIME SPENT: Approximately 60 minutes was spent on this discharge of this patient, 30 of which was spent [id number] with the patient obtaining history and physical and discussing the treatment plan. OCTAVIO CAIN [id number]/[facility] #: [id number]
== END 2019-06-21 13:45 | DRG 871 ==
LOC: ED 15:05 → MEDTELE 19:37 → OBSVTOIN 06-15 11:00
PROVIDERS: ADMIT Internal Medicine; ATTEND Internal Medicine
DX: A41.9 Sepsis, unspecified organism (principal); I63.9 Cerebral infarction, unspecified; G93.41 Metabolic encephalopathy; J18.9 Pneumonia, unspecified organism; R47.01 Aphasia; J44.0 Chronic obstructive pulmonary disease with (acute) lower respiratory infection; D35.2 Benign neoplasm of pituitary gland; E22.0 Acromegaly and pituitary gigantism; E78.5 Hyperlipidemia, unspecified; I10 Essential (primary) hypertension; F17.210 Nicotine dependence, cigarettes, uncomplicated; Z96.643 Presence of artificial hip joint, bilateral; Z96.651 Presence of right artificial knee joint; R79.89 Other specified abnormal findings of blood chemistry; R33.9 Retention of urine, unspecified; M19.042 Primary osteoarthritis, left hand; M19.041 Primary osteoarthritis, right hand; G47.33 Obstructive sleep apnea (adult) (pediatric); H53.461 Homonymous bilateral field defects, right side; J32.9 Chronic sinusitis, unspecified; Z85.118 Personal history of other malignant neoplasm of bronchus and lung; Z92.21 Personal history of antineoplastic chemotherapy; Z92.3 Personal history of irradiation; Z99.81 Dependence on supplemental oxygen; Z28.21 Immunization not carried out because of patient refusal; Z86.73 Personal history of transient ischemic attack (TIA), and cerebral infarction without residual deficits; Z79.82 Long term (current) use of aspirin
CPT/HCPCS: 36415; 70450; 70496; 70498; 70553; 71045; 71250; 80048; 80053; 80061; 81003; 81015; 82140; 82803; 83001; 83036; 83605; 83735; 83880; 84146; 84439; 84443; 84481; 84484; 85025; 85379; 87040; 87086; 93005; 93306; 96365; 96372; 96375; 96376; 97112; 99285; A9270-GY; A9579; G0378; J0360; J0696; J1650; J2405; J3475; Q9967